=== PATIENT | male | born 1940 | race Hispanic/Latino ===

== ENCOUNTER 2016-05-01 20:12 | Observation (INO) | payer MEDICAID ==
[~2016-05-01] VITALS: Ht 167.6 cm; Wt 61.2 kg
[~2016-05-01 20:12] MED LIST: DOXA1TAB2 PO
--- OUTSIDE RECORDS SUMMARY | 2016-05-01 20:17 | XMS REPORT | Continuity of Care Document ---
Author Author [facility] Organization [facility] Address Unknown Phone Unavailable Care Team Providers Care Maintenance Repairman Name Role Phone DAYSI BEDOYA DO PCP Insurance Providers Payer Name Policy Number Subscriber Name Relationship [facility] [id number] Love Campos 18 Self / Same As Patient Advance Directives Directive Response Recorded Date/Time Advance Directives No 10/13/14 6:05pm Health Care Power of Retail Custodial Associate No 10/13/14 6:05pm Organ Donor UNKNOWN 10/13/14 6:05pm Resuscitation Status Full Code 10/13/14 6:05pm Problems Medical Problems Problem Onset Date Status Alcohol abuse Unknown Active Urinary tract infection Unknown Active Diabetes mellitus Unknown Active Alcoholism Unknown Active Pancreatitis Unknown Active Sepsis Unknown Active Altered mental status Unknown Active Hematemesis Unknown Active Mass of right lobe of liver Unknown Active Cholelithiasis and acute cholecystitis with obstruction Unknown Active Ascending cholangitis Unknown Active Alcohol abuse Unknown Active Scalp laceration Unknown Active Medications Medication Dose Route Sig Days/Qty Instructions Order Date Discontinued Date Status Doxazosin Mesylate 1 Mg PO DAILY 05/03/11 04/15/14 Discontinued Social History Social History Problem Response Recorded Date/Time Alcohol Use Past History 10/13/2014 6:05pm Recreational Drug Use No 10/13/2014 6:05pm Recent Foreign Travel No 10/13/2014 6:02pm Recent Infectious Disease Exposure No 10/13/2014 6:02pm Hospitalization with Isolation Denies 10/13/2014 6:02pm Sexually Transmitted Disease No 10/13/2014 6:05pm Smoking Status Current Everyday Smoker 10/13/2014 6:05pm Query Response Start Date Stop Date Smoking Status Current Everyday Smoker Hospital Discharge Instructions No hospital discharge instructions. Plan of Care No plan of care. Functional Status No functional status results. Allergies, Adverse Reactions, Alerts Allergen Type Severity Reaction Status Last Updated No Known Drug Allergies Active 05/02/11 Immunizations Name Given Type Date of Influenza Vaccine 12/02/10 Historical Tetanus Booster (TDap) Unknown Historical Tdap 10/13/14 Administered Vital Signs Acute Vital Signs Vital Response Date/Time Temperature (Fahrenheit) 97.9 degrees F (97.6 - 99.5) Temperature (Calculated Celsius) 36.90163 degrees C (36.4 - 37.5) Pulse Rate (adult) 98 bpm (60 - 90) Respiratory Rate 18 bpm (12 - 24) O2 Sat by Pulse Oximetry 93 % (88 - 100) Blood Pressure 145/84 mm Hg Blood Pressure Mean 104 mm Hg Pain Pain Intensity 0 Height (Feet) 5 feet Height (Inches) 6.00 inches Height (Calculated Centimeters) 167.201442 cm Weight (Pounds) 151 pounds Weight (Ounces) 9.0 oz Weight (Calculated Grams) 80976.594 gm Weight (Calculated Kilograms) 68.384460 kilograms Calculated BMI 21.09 Results No known relevant diagnostic tests, laboratory data and/or discharge summary. Procedures No known history of procedures. Encounters Encounter Location Date/Time Departed Emergency Room [facility] 10/13/14 5:55pm Recent Diagnosis
[2016-05-01] MEDS ORDERED: LORazepam INJ 2 MG/ML (ATIVAN) VIAL ONE (20:20)
[2016-05-01 20:27] LABS: BASOPHILS # (AUTO) 0.1 10^3/uL (0.0-0.1); BASOPHILS % (AUTO) 1 % (0-10); EOSINOPHILS # (AUTO) 0.6 10^3/uL (0.0-0.3); EOSINOPHILS % (AUTO) 9 % (0-10); LYMPHOCYTES # (AUTO) 2.3 X 10^3 (1.0-4.0); LYMPHOCYTES % (AUTO) 35 % (12-44); MEAN CORPUSCULAR HEMOGLOBIN 33 PG (25-34); MEAN CORPUSCULAR HGB CONC 34 G/DL (32-36); MEAN CORPUSCULAR VOLUME 98 FL (80-99); MEAN PLATELET VOLUME 9.3 FL (7.4-10.4); MONOCYTES # (AUTO) 0.5 X 10^3 (0.0-1.0); MONOCYTES % (AUTO) 8 % (0-12); NEUTROPHILS # (AUTO) 3.1 X 10^3 (1.8-7.8); NEUTROPHILS % (AUTO) 47 % (42-75); PLATELET COUNT 249 10^3/uL (130-400); RED BLOOD COUNT 4.18 10^6/uL (4.35-5.85); RED CELL DISTRIBUTION WIDTH 13.1 % (10.0-14.5); WHITE BLOOD COUNT 6.5 10^3/uL (4.3-11.0)
[2016-05-01] MEDS ORDERED: LORazepam INJ 2 MG/ML (ATIVAN) VIAL IVP ONE (20:30)
[2016-05-01] MEDS ORDERED: NS IV 500 ML 500 ML IV SCH ×2 (20:30→21:00)
--- NOTE | 2016-05-01 20:34 | ED Neurological Problem ---
General Stated Complaint: ETOH INTOXICATION Source: patient Exam Limitations: no limitations History of Present Illness Time seen by provider: 20:32 Initial Comments To ER with complaints of alcohol intoxication. He arrives per EMS after they were summoned by [facility] deputies who found the gentleman acting strangely outside of the taxicab service. Patient is well-known to the emergency room for alcohol intoxication. Timing/Duration: 1 week Severity: mild Associated Symptoms: confusion Allergies and Home Medications Allergies Coded Allergies: No Known Drug Allergies (Unverified , 05/12/15) Home Medications Unable to Obtain Active Prescriptions or Reported Meds Constitutional: see HPI Eyes: No Symptoms Reported Ears, Nose, Mouth, Throat: no symptoms reported Respiratory: no symptoms reported Genitourinary: no symptoms reported Musculoskeletal: no symptoms reported Skin: no symptoms reported Psychiatric/Neurological: No Symptoms Reported Endocrine: No Symptoms Reported Past Sjzeqju-Vcghvs-Kufnuy Hx Immunizations Up To Date Tetanus Booster (TDap): Unknown Date of Pneumonia Vaccine: Dec 02, 2010 Date of Influenza Vaccine: Dec 02, 2010 Surgeries HX Surgeries: No ("Prostate") Respiratory Hx Respiratory Disorders: No Cardiovascular Hx Cardiac Disorders: Yes Neurological Hx Neurological Disorders: No Reproductive System Hx Reproductive Disorders: No Sexually Transmitted Disease: No Genitourinary Hx Genitourinary Disorders: Yes Genitourinary Disorders: UTI-Chronic Gastrointestinal Hx Gastrointestinal Disorders: No Musculoskeletal Hx Musculoskeletal Disorders: Yes (PATIENT HAS FRACTURES L AND R PINKY) Endocrine Hx Endocrine Disorders: No HEENT HX ENT Disorders: Yes Hearing Impairment: Hard of Hearing Cancer Hx Cancer: No Psychosocial Hx Psychiatric Problems: No Integumentary HX Skin/Integumentary Disorder: No Blood Transfusions Hx Blood Disorders: No Family Medical History Significant Family History: No Pertinent Family Hx Family Medial History: Patient reports no known family medical history. Physical Exam Vital Signs Capillary Refill : General Appearance: WD/WN no apparent distress HEENT: PERRL/EOMI normal ENT inspection Neck: non-tender full range of motion Respiratory: no respiratory distress no accessory muscle use Cardiovascular: regular rate, rhythm no murmur Gastrointestinal: normal bowel sounds non tender soft Extremities: normal range of motion Neurologic/Psychiatric: alert other (looking around the room, smiling, grabbing at the female staff members chest, laughing.) Crainal Nerves: normal hearing normal speech Skin: normal color warm/dry Comments Ativan 0.5 mg IV ordered as he is trying to crawl out of bed and grabbing at women's breasts. Progress/Results/Core Measures Results/Orders Lab Results Laboratory Tests Test 05/01/16 20:15 Range/Units Alanine Aminotransferase (ALT/SGPT) 9 0-55 U/L Albumin 4.4 3.2-4.5 G/DL Alkaline Phosphatase 83 40-136 U/L Anion Gap 14 5-14 MMOL/L Aspartate Amino Transf (AST/SGOT) 31 5-34 U/L BUN/Creatinine Ratio 16 Basophils # (Auto) 0.1 0.0-0.1 10^3/uL Basophils (%) (Auto) 1 0-10 % Blood Urea Nitrogen 13 7-18 MG/DL Calcium Level 8.8 8.5-10.1 MG/DL Carbon Dioxide Level 19 L 21-32 MMOL/L Chloride Level 117 H 98-107 MMOL/L Creatinine 0.82 0.60-1.30 MG/DL Eosinophils # (Auto) 0.6 H 0.0-0.3 10^3/uL Eosinophils (%) (Auto) 9 0-10 % Estimat Glomerular Filtration Rate > 60 Glucose Level 98 70-105 MG/DL Hematocrit 41 40-54 % Hemoglobin 13.7 13.3-17.7 G/DL INR Comment 1.1 0.8-1.4 Lymphocytes # (Auto) 2.3 1.0-4.0 X 10^3 Lymphocytes (%) (Auto) 35 12-44 % Mean Corpuscular Hemoglobin 33 25-34 PG Mean Corpuscular Hemoglobin Concent 34 32-36 G/DL Mean Corpuscular Volume 98 80-99 FL Mean Platelet Volume 9.3 7.4-10.4 FL Monocytes # (Auto) 0.5 0.0-1.0 X 10^3 Monocytes (%) (Auto) 8 0-12 % Neutrophils # (Auto) 3.1 1.8-7.8 X 10^3 Neutrophils (%) (Auto) 47 42-75 % Platelet Count 249 130-400 10^3/uL Potassium Level 3.4 L 3.6-5.0 MMOL/L Prothrombin Time 13.5 12.2-14.7 SEC Red Blood Count 4.18 L 4.35-5.85 10^6/uL Red Cell Distribution Width 13.1 10.0-14.5 % Serum Alcohol 431 *H <10 MG/DL Sodium Level 150 H 135-145 MMOL/L Total Bilirubin 0.3 0.1-1.0 MG/DL Total Protein 7.2 6.4-8.2 G/DL White Blood Count 6.5 4.3-11.0 10^3/uL My Orders Orders-CATHI CABALLERO APRN Cbc With Automated Diff (05/01/16 20:16) Protime With Inr (05/01/16 20:16) Comprehensive Metabolic Panel (05/01/16 20:16) Alcohol (05/01/16 20:16) Ua Culture If Indicated (05/01/16 20:16) Drug Screen Stat (Urine) (05/01/16 20:16) Ns Iv 500 Ml (Sodium Chloride 0.9%) (05/01/16 20:30) Lorazepam Injection (Ativan Injection) (05/01/16 20:30) Lorazepam Injection (Ativan Injection) (05/01/16 20:20) Ns Iv 500 Ml (Sodium Chloride 0.9%) (05/01/16 21:00) Medications Given in ED Current Medications Medications Dose Ordered Sig/Brenda Route Start Time Stop Time Status Last Admin Dose Admin Lorazepam 0.5 mg ONCE ONCE IVP 05/01/16 20:30 05/01/16 20:31 DC 05/01/16 20:49 0.5 MG Departure Communication Time/Spoke to Admitting Phy: 22:[address] Ng who graciously accepts the admission for observation Progress Notes 2232-still in bed, alert, singing loudly. However, has urinated all over himself and is unable to stand. He has no close family members here Impression Impression: Primary Impression: Alcohol intoxication Disposition: ADMITTED INPATIENT Condition: Stable Decision to Admit Reason: Admit from ER (General) Decision to Admit/Date: May 01, 2016 Time/Decision to Admit Time: 22:33 Departure-Patient Inst. Decision time for Depature: 21:13 Referrals: DAYSI BEDOYA DO (PCP/Family) Primary Care Physician Scripts Unable to Obtain Active Prescriptions or Reported Meds CATHI CABALLERO APRN May 01, 2016 20:34
[2016-05-01 20:36] LABS: INR 1.1 (0.8-1.4); PROTHROMBIN TIME PATIENT 13.5 SEC (12.2-14.7)
[2016-05-01 20:47] LABS: ALANINE AMINOTRANSFERASE 9 U/L (0-55); ALBUMIN 4.4 G/DL (3.2-4.5); ANION GAP 14 MMOL/L (5-14); ASPARTATE AMINO TRANSFERASE 31 U/L (5-34); BILIRUBIN,TOTAL 0.3 MG/DL (0.1-1.0); BLOOD UREA NITROGEN 13 MG/DL (7-18); BUN/CREATININE RATIO 16; CALCIUM 8.8 MG/DL (8.5-10.1); CARBON DIOXIDE 19 MMOL/L (21-32); CHLORIDE 117 MMOL/L (98-107); CREATININE SERUM 0.82 MG/DL (0.60-1.30); GFR ESTIMATED > 60; GLUCOSE 98 MG/DL (70-105); POTASSIUM 3.4 MMOL/L (3.6-5.0); SODIUM 150 MMOL/L (135-145); TOTAL PROTEIN 7.2 G/DL (6.4-8.2)
[2016-05-01 20:50] LABS: ALCOHOL 431 MG/DL (<10)
[2016-05-01 23:25] VITALS: BP 161/87
[2016-05-02] MEDS ORDERED: LORazepam INJ 2 MG/ML (ATIVAN) VIAL IVP ONE (00:40)
[2016-05-02] MEDS ORDERED: LORazepam INJ 2 MG/ML (ATIVAN) VIAL IVP PRN (00:45)
[2016-05-02] MEDS ORDERED: NS IV 1000 ML 1,000 ML ONE (01:58)
[2016-05-02] MEDS: NS IV 1000 ML 1,000 ML IV SCH ×2 (02:09→13:22)
[2016-05-02 04:20] VITALS: BP 143/77
[2016-05-02 06:05] LABS: ANION GAP 14 MMOL/L (5-14); BLOOD UREA NITROGEN 10 MG/DL (7-18); BUN/CREATININE RATIO 14; CALCIUM 7.6 MG/DL (8.5-10.1); CARBON DIOXIDE 18 MMOL/L (21-32); CHLORIDE 120 MMOL/L (98-107); CREATININE SERUM 0.73 MG/DL (0.60-1.30); GFR ESTIMATED > 60; GLUCOSE 80 MG/DL (70-105); SODIUM 152 MMOL/L (135-145)
[2016-05-02 08:00] VITALS: BP 135/78
[2016-05-02] MEDS ORDERED: CATHETER FLUSH 10 ML SYR IV PRN (09:45)
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
--- NOTE | 2016-05-02 11:59 | Discharge Instructions ---
Discharge [facility] Discharge Medications New, Converted or Re-Newed RX: Other Medication Profile: Unable to Obtain Active Prescriptions or Reported Meds Patient Instructions Goal/Follow Up Appt: You have an appointment at [facility] on SaturdayMay 04 @ 320PM - It is very important that you come to your appointment so that we can help you with you medical concerns You will also need to contact Geoffrey Pa Patient Instructions: - It is very important that you limit alcohol consumption, We have very limited in the help that we can provide you while you are drinking Return to The Hospital For: Chest pain Shortness of breath Confusion Activity & Diet Discharge Diet: No Restrictions Activity as Tolerated: Yes Copy Copies To 1: JACKIE JIMÉNEZ MD, HOLLY R MD May 02, 2016 11:59
[2016-05-02 12:00] VITALS: BP 152/85
[2016-05-02] MEDS ORDERED: KCL 20 MEQ TAB (K-DUR) PO NR (12:00)
[2016-05-02 19:34] VITALS: BP 152/85
== END 2016-05-02 11:56 | disposition home or self-care (01) ==
LOC: EDUNIT# 20:12 → ER 20:13 → UNDOADMOB 22:57 → 4TH 22:57 → UNDODISOB 05-02 19:38
PROVIDERS: ADMIT Family Medicine; ATTEND Family Medicine
DX: F10.229 Alcohol dependence with intoxication, unspecified (principal); R32 Unspecified urinary incontinence; E11.9 Type 2 diabetes mellitus without complications; Z59.0 Homelessness; Z91.19 Patient's noncompliance with other medical treatment and regimen; Y90.8 Blood alcohol level of 240 mg/100 ml or more
CPT/HCPCS: 36415; 80048; 80053; 80320; 85025; 85610; 96374; G0378

== ENCOUNTER 2019-06-06 20:12 | Inpatient (IN) | payer SELFPAY ==
[~2019-06-06] VITALS: Ht 177 cm; Wt 64.0 kg
[~2019-06-06 20:12] MED LIST changes: +LORazepam INJ 2 MG/ML (ATIVAN) VIAL ONE
--- OUTSIDE RECORDS SUMMARY | 2019-06-06 20:17 | XMS REPORT ---
Author Author David, Taco Doctor Organization [facility] Address Unknown Phone Unavailable Care Team Providers Care Appraiser Irrigation Tax Name Role Phone Migration, Doctor Unavailable Unavailable PROBLEMS Type Condition ICD9-CM Code [id number] Code Onset Dates Condition S tatus SNOMED Code Problem Mild intermittent asthma without complication J45. 20 Active 413330320 Problem Essential hypertension I10 Active 03806804 Problem Benign prostatic hyperplasia with lower urinary tract symptoms N40.1 Active 603978865 ALLERGIES No Information ENCOUNTERS Encounter Location Date Diagnosis [facility] [address] [facility] [id number] [address] [place] [phone] Sep, Dysuria R30.0 ; Essential hy pertension I10 ; Mild intermittent asthma without complication J45.20 ; Benign prostatic hyperplasia with lower urinary tract symptoms N40.1 ; Acute cystitis with hematuria N30.01 and UTI (urinary tract infection) N39.0 [facility] [address] [facility] [id number] [address] [place] [phone] Sep, [facility] [address] [facility] [id number] [address] [place] [phone] Sep, [facility] [address] [facility] [id number] [address] [place] [phone] Jun, [facility] [id number] [place] [phone] May, [facility] [address] [facility] [id number] [address] [place] [phone] May, [facility] [address] [id number] [address] [place] [phone] May, [facility] [address] [facility] [id number] [address] [place] [phone] Jun, [facility] [address] [id number] [address] [place] [phone] Jun, [facility] [address] [id number] [address] [place] [phone] May, [facility] [address] [id number] [address] [place] [phone] May, [facility] [address] [id number] [address] [place] [phone] May, [facility] [address] [id number] [address] [place] [phone] May, [facility] [address] [id number] [address] [place] [phone] May, [facility] [address] [id number] [address] [place] [phone] May, [facility] [address] [id number] [address] [place] [phone] July, [facility] [address] [id number] [address] [place] [phone] Mar, IMMUNIZATIONS No Known Immunizations SOCIAL HISTORY Never Assessed REASON FOR VISIT [facility] PLAN OF CARE VITAL SIGNS Height 65 in 2012-07-29 Weight 134 lbs 2012-07-29 Temperature 98.1 degrees Fahrenheit 2012-07-29 Heart Rate 72 bpm 2012-07-29 Respiratory Rate 16 2012-07-29 Blood pressure systolic 138 mmHg 2012-07-29 Blood pressure diastolic 72 mmHg 2012-07-29 MEDICATIONS No Known Medications RESULTS No Results PROCEDURES No Known procedures INSTRUCTIONS MEDICATIONS ADMINISTERED No Known Medications MEDICAL (GENERAL) HISTORY Type Description Date Surgical History gall bladder Hospitalization History ETOH intoxication-H 04/30/16
--- OUTSIDE RECORDS SUMMARY | 2019-06-06 20:17 | XMS REPORT ---
Author Author David, Taco Doctor Organization [facility] Address Unknown Phone Unavailable Care Team Providers Care Heat Treat Supervisor Name Role Phone Migration, Doctor Unavailable Unavailable PROBLEMS Type Condition ICD9-CM Code PRK54-KA Code Onset Dates Condition S tatus SNOMED Code Problem Mild intermittent asthma without complication J45. 20 Active 733909051 Problem Essential hypertension I10 Active 12027973 Problem Benign prostatic hyperplasia with lower urinary tract symptoms N40.1 Active [id number] ALLERGIES No Information ENCOUNTERS Encounter Location Date Diagnosis [facility] [address] [facility] [id number] [address] [place] [phone] Sep, Dysuria R30.0 ; Essential hy pertension I10 ; Mild intermittent asthma without complication J45.20 ; Benign prostatic hyperplasia with lower urinary tract symptoms N40.1 ; Acute cystitis with hematuria N30.01 and UTI (urinary tract infection) N39.0 [facility] [address] [facility] [id number] [address] [place] [phone] Sep, [facility] [address] [facility] [id number] [address] [place] [phone] Sep, [facility] [address] [facility] [id number] [address] [place] [phone] Jun, [facility] [id number] [place] [id number] May, [facility] [address] [facility] [id number] [address] [place] [phone] May, [facility] [address] [id number] [address] [place] [phone] May, [facility] [address] [facility] [id number] [address] [place] [phone] Jun, [facility] [address] [id number] [address] [place] [phone] Jun, [facility] [address] [id number] [address] [place] [phone] May, [facility] [address] [id number] [address] [place] [phone] May, [facility] [address] [id number] [address] [place] [phone] May, [facility] [address] [id number] [address] [place] [phone] May, [facility] [address] [id number] [address] [place] [phone] May, [facility] [address] [id number] [address] [place] [phone] May, [facility] [address] [id number] [address] [place] [phone] July, [facility] [address] [id number] [address] [place] [phone] Mar, IMMUNIZATIONS No Known Immunizations SOCIAL HISTORY Never Assessed REASON FOR [place]ISIT [facility] [place] VITAL SIGNS Height 65 in 2014-05-25 Weight 151 lbs 2014-05-25 Temperature 98.4 degrees Fahrenheit 2014-05-25 Heart Rate 68 bpm 2014-05-25 Respiratory Rate 16 2014-05-25 Blood pressure systolic 168 mmHg 2014-05-25 Blood pressure diastolic 82 mmHg 2014-05-25 MEDICATIONS No Known Medications RESULTS No Results PROCEDURES No Known procedures INSTRUCTIONS MEDICATIONS ADMINISTERED No Known Medications MEDICAL (GENERAL) HISTORY Type Description Date Surgical History gall bladder Hospitalization History ETOH intoxication-H 04/30/16
--- OUTSIDE RECORDS SUMMARY | 2019-06-06 20:17 | XMS REPORT ---
Author Author David, Taco Doctor Organization [facility] Address Unknown Phone Unavailable Care Team Providers Care Radiological Equipment Specialist Name Role Phone Migration, Doctor Unavailable Unavailable PROBLEMS Type Condition ICD9-CM Code MCH62-II Code Onset Dates Condition S tatus SNOMED Code Problem Mild intermittent asthma without complication J45. 20 Active 811392048 Problem Essential hypertension I10 Active 78898427 Problem Benign prostatic hyperplasia with lower urinary tract symptoms N40.1 Active [id number] ALLERGIES No Information ENCOUNTERS Encounter Location Date Diagnosis [facility] [address] [facility] [id number] [address] [place] [phone] Sep, Dysuria R30.0 ; Essential hy pertension I10 ; Mild intermittent asthma without complication J45.20 ; Benign prostatic hyperplasia with lower urinary tract symptoms N40.1 ; Acute cystitis with hematuria N30.01 and UTI (urinary tract infection) N39.0 [facility] [address] [facility] [id number] [address] [place] [phone] Sep, [facility] [address] [facility] [id number] [address] [place] [phone] Sep, [facility] [address] [facility] [id number] [address] [place] [phone] Jun, [facility] [id number] [place] [id number] May, [facility] [address] [facility] [id number] [address] [place] [phone] May, [facility] [address] [id number] [address] [place] [phone] May, [facility] [address] [facility] [id number] [address] [place] [phone] Jun, [facility] [address] [id number] [address] [place] [phone] Jun, [facility] [address] [id number] [address] [place] [phone] May, [facility] [address] [id number] [address] [place] [phone] May, [facility] [address] [id number] [address] [place] [phone] May, [facility] [address] [id number] [address] [place] [phone] May, [facility] [address] [id number] [address] [place] [phone] May, [facility] [address] [id number] [address] [place] [phone] May, [facility] [address] [id number] [address] [place] [phone] July, [facility] [address] [id number] [address] [place] [phone] Mar, IMMUNIZATIONS No Known Immunizations SOCIAL HISTORY Never Assessed REASON FOR VISIT EMR-[facility] PLAN OF CARE VITAL SIGNS MEDICATIONS No Known Medications RESULTS No Results PROCEDURES Procedure Date Ordered Result Body Site COMPREHEN METABOLIC PANEL May 05, 2014 VENIPUNCT, ROUTINE* May 05, 2014 INSTRUCTIONS MEDICATIONS ADMINISTERED No Known Medications MEDICAL (GENERAL) HISTORY Type Description Date Surgical History gall bladder Hospitalization History ETOH intoxication-[facility] 04/30/16
--- OUTSIDE RECORDS SUMMARY | 2019-06-06 20:17 | XMS REPORT ---
Author Author David, Taco Doctor Organization [facility] Address Unknown Phone Unavailable Care Team Providers Care Negative Cleaner Name Role Phone Migration, Doctor Unavailable Unavailable PROBLEMS Type Condition ICD9-CM Code HDA34-JR Code Onset Dates Condition S tatus SNOMED Code Problem Mild intermittent asthma without complication J45. 20 Active 534929081 Problem Essential hypertension I10 Active 03818958 Problem Benign prostatic hyperplasia with lower urinary tract symptoms N40.1 Active 060522683 ALLERGIES No Information ENCOUNTERS Encounter Location Date Diagnosis [facility] [address] [facility] [id number] [address] [place] [phone] Sep, Dysuria R30.0 ; Essential hy pertension I10 ; Mild intermittent asthma without complication J45.20 ; Benign prostatic hyperplasia with lower urinary tract symptoms N40.1 ; Acute cystitis with hematuria N30.01 and UTI (urinary tract infection) N39.0 [facility] [address] [facility] [id number] [address] [place] [phone] Sep, [facility] [address] [facility] [id number] [address] [place] [phone] Sep, [facility] [address] [facility] [id number] [address] [place] [phone] Jun, [facility] [address] [place] [id number] [place] [address] [phone] May, [facility] [address] [facility] [id number] [address] [place] [phone] May, [facility] [address] [id number] [address] [place] [phone] May, [facility] [address] [facility] [id number] [address] [place] [phone] Jun, [facility] [address] [id number] [address] [place] [phone] Jun, [facility] [address] [id number] [address] [place] [phone] May, [facility] [address] [id number] [address] [place] [phone] May, [facility] [address] [id number] [address] [place] [phone] May, [facility] [address] [id number] [address] [place] [phone] May, [facility] [address] [id number] [address] [place] [phone] May, [facility] [address] [id number] [address] [place] [phone] May, [facility] [address] [id number] [address] [place] [phone] July, [facility] [address] [id number] [address] [place] [phone] Mar, IMMUNIZATIONS No Known Immunizations SOCIAL HISTORY Never Assessed REASON FOR VISIT EMR-[facility] PLAN OF CARE VITAL SIGNS Height 65 in 2014-05-05 Weight 149.7 lbs 2014-05-05 Temperature 98 degrees Fahrenheit 2014-05-05 Heart Rate 76 bpm 2014-05-05 Respiratory Rate 16 2014-05-05 Blood pressure systolic 128 mmHg 2014-05-05 Blood pressure diastolic 72 mmHg 2014-05-05 MEDICATIONS No Known Medications RESULTS No Results PROCEDURES No Known procedures INSTRUCTIONS MEDICATIONS ADMINISTERED No Known Medications MEDICAL (GENERAL) HISTORY Type Description Date Surgical History gall bladder Hospitalization History ETOH intoxication-[facility] 04/30/16
--- OUTSIDE RECORDS SUMMARY | 2019-06-06 20:17 | XMS REPORT ---
Author Author David, Taco Doctor Organization [facility] Address Unknown Phone Unavailable Care Team Providers Care Petroleum Refinery Worker Name Role Phone Migration, Doctor Unavailable Unavailable PROBLEMS Type Condition ICD9-CM Code [id number] Code Onset Dates Condition S tatus SNOMED Code Problem Mild intermittent asthma without complication J45. 20 Active 097550711 Problem Essential hypertension I10 Active 20830790 Problem Benign prostatic hyperplasia with lower urinary tract symptoms N40.1 Active [id number] ALLERGIES No Information ENCOUNTERS Encounter Location Date Diagnosis [facility] [address] [facility] [id number] [address] [place] [phone] Sep, Dysuria R30.0 ; Essential hy pertension I10 ; Mild intermittent asthma without complication J45.20 ; Benign prostatic hyperplasia with lower urinary tract symptoms N40.1 ; Acute cystitis with hematuria N30.01 and UTI (urinary tract infection) N39.0 [facility] [address] [facility] [id number] [address] [place] [phone] Sep, [facility] [address] [facility] [id number] [address] [place] [phone] Sep, [facility] [address] [facility] [id number] [address] [place] [phone] Jun, [facility] [address] [place] [id number] [place] [address] [id number] May, [facility] [address] [facility] [id number] [address] [place] [phone] May, [facility] [address] [id number] [address] [place] [phone] May, [facility] [address] [facility] [id number] [address] [place] [phone] Jun, [facility] [address] [id number] [address] [place] [phone] Jun, [facility] [address] [id number] [address] [place] [phone] May, [facility] [address] [id number] [address] [place] [phone] May, [facility] [address] [id number] [address] [place] [phone] May, [facility] [address] [id number] [address] [place] [phone] May, [facility] [address] [id number] [address] [place] [phone] May, [facility] [address] [id number] [address] [place] [phone] May, [facility] [address] [id number] [address] [place] [phone] July, [facility] [address] [id number] [address] [place] [phone] Mar, IMMUNIZATIONS No Known Immunizations SOCIAL HISTORY Never Assessed REASON FOR VISIT [place] [place] CARE VITAL SIGNS MEDICATIONS No Known Medications RESULTS No Results PROCEDURES Procedure Date Ordered Result Body Site PROS CANCER SCR; NEW PT DIGTL RECTAL EXAM May 14, 2014 URINALYSIS, AUTO, W/O SCOPE May 14, 2014 INSTRUCTIONS MEDICATIONS ADMINISTERED No Known Medications MEDICAL (GENERAL) HISTORY Type Description Date Surgical History gall bladder Hospitalization History ETOH intoxication-[facility] 04/30/16
--- OUTSIDE RECORDS SUMMARY | 2019-06-06 20:18 | XMS REPORT ---
Author Author Taco Rawls Organization [facility] Address [address] [place] [address] Care Team Providers Care Upholstery Sewer Name Role Phone [email or web address] MANOHAR Unavailable PROBLEMS Type Condition ICD9-CM Code RJS05-JG Code Onset Dates Condition S tatus SNOMED Code Problem Essential hypertension I10 Active 08964299 Problem Mild intermittent asthma without complication J45. 20 Active 945645197 Problem Benign prostatic hyperplasia with lower urinary tract symptoms N40.1 Active 107330052 ALLERGIES No Known Allergies ENCOUNTERS Encounter Location Date Diagnosis [facility] [address] [place] [id number] [address] [place] [phone] Sep, [facility] [address] [place] [id number] [address] [place] [phone] Sep, Dysuria R30.0 ; Essential hy pertension I10 ; Mild intermittent asthma without complication J45.20 ; Benign prostatic hyperplasia with lower urinary tract symptoms N40.1 ; Acute cystitis with hematuria N30.01 and UTI (urinary tract infection) N39.0 [facility] [address] [place] [id number] [address] [place] [phone] Sep, [facility] [address] [place] [id number] [address] [place] [phone] Jun, [facility] [address] [place] [id number] [place] [address] [phone] May, [facility] [address] [place] [id number] [address] [place] [phone] May, [facility] [address] [place] [id number] [address] [place] [phone] May, [facility] [address] [place] [id number] [address] [place] [phone] Jun, [facility] [address] [id number] [address] [place] [phone] Jun, [facility] [address] [id number] [address] [place] [phone] May, [facility] [address] [id number] [address] [place] [phone] May, [facility] [address] [id number] [address] [place] [phone] May, [facility] [address] [id number] [address] [place] [phone] May, [facility] [address] [id number] [address] [place] [phone] May, [facility] [address] [id number] [address] [place] [phone] May, [facility] [address] [id number] [address] [place] [phone] July, [facility] [address] [id number] [address] [place] [phone] Mar, IMMUNIZATIONS No Known Immunizations SOCIAL HISTORY Never Assessed REASON FOR VISIT Painful Urination. Pt has had this problem x 5 years. Has been to [facility] multi ple times and seen multiple doctors for this problem. Pt use to take Flomax fro m another provider here in 2014 but then it was just stopped. KEYLA Peck PLAN OF CARE Activity Details Follow Up 2 Weeks Reason:uti VITAL SIGNS Height 65 in 2016-09-14 Weight 141 lbs 2016-09-14 Temperature 98.9 degrees Fahrenheit 2016-09-14 Heart Rate 88 bpm 2016-09-14 Respiratory Rate 18 2016-09-14 BMI 23.46 kg/m2 2016-09-14 Blood pressure systolic 150 mmHg 2016-09-14 Blood pressure diastolic 90 mmHg 2016-09-14 MEDICATIONS Medication Instructions Dosage Frequency Start Date End Date Duration S roxana Lisinopril-Hydrochlorothiazide 10-12.5 mg take 2 tablet by Oral route 1 time per day already has May, Active Albuterol Sulfate HFA 108 (90 Base) MCG/ACT Inhalation every 4 hrs 2 puffs as needed 4h Sep, Active Lisinopril-Hydrochlorothiazide 20-12.5 MG Orally Once a day 1 table t 24h Sep, 30 day(s) Active Flomax 0.4 MG Orally Once a day 1 capsule 24h Sep, 13 Au g2016 30 day(s) Active Cipro 500 mg Orally Twice a day 1 tablet 12h Sep, 24 Ju l2016 10 day(s) Active RESULTS Name Result Date Reference Range UA LONG DIP (IN HOUSE) 2016-09-14 Lot # Exp date Clarity turbid Color yellow Odor no GLU NEG VIKKI NEG KET NEG SG 1.020 BLO TRACE-LYSED pH 5.5 Protein 1+ URO 0.2 NIT POS ROSA 3+ Lot # Exp date CBC 2016-09-14 WBC 5.9 3.4-10.8 RBC 4.41 4.14-5.80 Hemoglobin 13.8 12.6-17.7 Hematocrit 41.0 37.5-51.0 MCV 93 79-97 MCH 31.3 26.6-33.0 MCHC 33.7 31.5-35.7 RDW 12.5 12.3-15.4 Platelets 220 150-379 Neutrophils 52 Lymphs 20 Monocytes 12 Eos 15 Basos 1 Neutrophils (Absolute) 3.1 1.4-7.0 Lymphs (Absolute) 1.2 0.7-3.1 Monocytes(Absolute) 0.7 0.1-0.9 Eos (Absolute) 0.9 0.0-0.4 Baso (Absolute) 0.0 0.0-0.2 Immature Granulocytes 0 Immature Grans (Abs) 0.0 0.0-0.1 CULTURE, URINE 2016-09-14 Urine Culture, Routine Final report Result 1 No growth PSA 2016-09-14 Prostate Specific Ag, Serum 47.7 0.0- 4.0 CMP 2016-09-14 Glucose, Serum 111 65-99 BUN 17 8-27 Creatinine, Serum 1.00 0.76-1.27 eGFR If NonAfricn Am 73 >59 eGFR If Africn Am 84 >59 BUN/Creatinine Ratio 17 10-24 Sodium, Serum 143 134-144 Potassium, Serum 3.8 3.5-5.2 Chloride, Serum 107 96-106 Carbon Dioxide, Total 18 18-29 Calcium, Serum 8.8 8.6-10.2 Protein, Total, Serum 7.2 6.0-8.5 Albumin, Serum 4.4 3.5-4.8 Globulin, Total 2.8 1.5-4.5 A/G Ratio 1.6 1.2-2.2 Bilirubin, Total 0.3 0.0-1.2 Alkaline Phosphatase, S 95 39-117 AST (SGOT) 25 0-40 ALT (SGPT) 10 0-44 PROCEDURES Procedure Date Ordered Result Body Site URINALYSIS, AUTO, W/O SCOPE September 14, 2016 LAB NOT BILLED BY [facility] September 14, 2016 VENIPUNCT, ROUTINE* September 14, 2016 INSTRUCTIONS MEDICATIONS ADMINISTERED No Known Medications MEDICAL (GENERAL) HISTORY Type Description Date Surgical History gall bladder Hospitalization History ETOH intoxication-[facility] 04/30/16
--- OUTSIDE RECORDS SUMMARY | 2019-06-06 20:18 | XMS REPORT ---
Author Author David, Taco Doctor Organization [facility] Address Unknown Phone Unavailable Care Team Providers Care Auto Wheel Alignment Specialist Name Role Phone Migration, Doctor Unavailable Unavailable PROBLEMS Type Condition ICD9-CM Code [id number] Code Onset Dates Condition S tatus SNOMED Code Problem Mild intermittent asthma without complication J45. 20 Active 253514667 Problem Essential hypertension I10 Active 45317652 Problem Benign prostatic hyperplasia with lower urinary tract symptoms N40.1 Active 892457775 ALLERGIES No Information ENCOUNTERS Encounter Location Date Diagnosis [facility] [address] [facility] [id number] [address] [place] [phone] Sep, Dysuria R30.0 ; Essential hy pertension I10 ; Mild intermittent asthma without complication J45.20 ; Benign prostatic hyperplasia with lower urinary tract symptoms N40.1 ; Acute cystitis with hematuria N30.01 and UTI (urinary tract infection) N39.0 [facility] [address] [facility] [id number] [address] [place] [phone] Sep, [facility] [address] [facility] [id number] [address] [place] [phone] Sep, [facility] [address] [facility] [id number] [address] [place] [phone] Jun, [facility] [address] [place] [id number] [place] [address] [id number] May, [facility] [address] [facility] [id number] [address] [place] [phone] May, [facility] [address] [id number] [address] [place] [phone] May, [facility] [address] [facility] [id number] [address] [place] [phone] Jun, [facility] [address] [id number] [address] [place] [phone] Jun, [facility] [address] [id number] [address] [place] [phone] May, [facility] [address] [id number] [address] [place] [phone] May, [facility] [address] [id number] [address] [place] [phone] May, [facility] [address] [id number] [address] [place] [phone] May, [facility] [address] [id number] [address] [place] [phone] May, [facility] [address] [id number] [address] [place] [phone] May, [facility] [address] [id number] [address] [place] [phone] July, [facility] [address] [id number] [address] [place] [phone] Mar, IMMUNIZATIONS No Known Immunizations SOCIAL HISTORY Never Assessed REASON FOR VISIT EMR-[facility] PLAN OF CARE VITAL SIGNS MEDICATIONS No Known Medications RESULTS No Results PROCEDURES Procedure Date Ordered Result Body Site COMPREHEN METABOLIC PANEL May 25, 2014 VENIPUNCT, ROUTINE* May 25, 2014 INSTRUCTIONS MEDICATIONS ADMINISTERED No Known Medications MEDICAL (GENERAL) HISTORY Type Description Date Surgical History gall bladder Hospitalization History ETOH intoxication-[facility] 04/30/16
--- OUTSIDE RECORDS SUMMARY | 2019-06-06 20:18 | XMS REPORT ---
Author Author David, Taco Doctor Organization [facility] Address Unknown Phone Unavailable Care Team Providers Care Nremt Name Role Phone Migration, Doctor Unavailable Unavailable PROBLEMS Type Condition ICD9-CM Code [id number] Code Onset Dates Condition S tatus SNOMED Code Problem Mild intermittent asthma without complication J45. 20 Active 591551975 Problem Essential hypertension I10 Active 91325770 Problem Benign prostatic hyperplasia with lower urinary tract symptoms N40.1 Active [id number] ALLERGIES No Information ENCOUNTERS Encounter Location Date Diagnosis [facility] [address] [facility] [id number] [address] [place] [phone] Sep, [facility] [address] [facility] [id number] [address] [place] [phone] Sep, Dysuria R30.0 ; Essential hy pertension I10 ; Mild intermittent asthma without complication J45.20 ; Benign prostatic hyperplasia with lower urinary tract symptoms N40.1 ; Acute cystitis with hematuria N30.01 and UTI (urinary tract infection) N39.0 [facility] [address] [facility] [id number] [address] [place] [phone] Sep, [facility] [address] [facility] [id number] [address] [place] [phone] Jun, [facility] [address] [place] [id number] [place] [id number] May, [facility] [address] [facility] [id number] [address] [place] [phone] May, [facility] [address] [facility] [id number] [address] [place] [phone] May, [facility] [address] [facility] [id number] [address] [place] [phone] Jun, [facility] [address] [facility] [id number] [address] [place] [phone] Jun, [facility] [address] [id number] [address] [place] [phone] May, [facility] [address] [id number] [address] [place] [phone] May, [facility] [address] [id number] [address] [place] [phone] May, [facility] [address] [id number] [address] [place] [phone] May, [facility] [address] [id number] [address] [place] [phone] May, [facility] [address] [id number] [address] [place] [phone] May, [facility] [address] [id number] [address] [place] [phone] July, [facility] [address] [id number] [address] [place] [phone] Mar, IMMUNIZATIONS No Known Immunizations SOCIAL HISTORY Never Assessed REASON FOR VISIT [place] [place] VITAL SIGNS MEDICATIONS Medication Instructions Dosage Frequency Start Date End Date Duration S roxana Lisinopril-Hydrochlorothiazide 10-12.5 mg take 2 tablet by Oral route 1 time per day already has May, Active RESULTS No Results PROCEDURES No Known procedures INSTRUCTIONS MEDICATIONS ADMINISTERED No Known Medications MEDICAL (GENERAL) HISTORY Type Description Date Surgical History gall bladder Hospitalization History ETOH intoxication-[facility] 04/30/16
--- OUTSIDE RECORDS SUMMARY | 2019-06-06 20:18 | XMS REPORT ---
Author Author David, Taco Doctor Organization [facility] Address Unknown Phone Unavailable Care Team Providers Care Central Sterile Supply Technician Name Role Phone Migration, Doctor Unavailable Unavailable PROBLEMS Type Condition ICD9-CM Code ERT87-MZ Code Onset Dates Condition S tatus SNOMED Code Problem Mild intermittent asthma without complication J45. 20 Active 239785107 Problem Essential hypertension I10 Active 39809080 Problem Benign prostatic hyperplasia with lower urinary tract symptoms N40.1 Active [id number] ALLERGIES No Information ENCOUNTERS Encounter Location Date Diagnosis [facility] [address] [facility] [id number] [address] [place] [phone] Sep, [facility] [address] [facility] [id number] [address] [place] [phone] Sep, Dysuria R30.0 ; Essential hy pertension I10 ; Mild intermittent asthma without complication J45.20 ; Benign prostatic hyperplasia with lower urinary tract symptoms N40.1 ; Acute cystitis with hematuria N30.01 and UTI (urinary tract infection) N39.0 [facility] [address] [facility] [id number] [address] [place] [phone] Sep, [facility] [address] [facility] [id number] [address] [place] [phone] Jun, [facility] [id number] [place] [phone] May, [facility] [address] [facility] [id number] [address] [place] [phone] May, [facility] [address] [facility] [id number] [address] [place] [phone] May, [facility] [address] [facility] [id number] [address] [place] [phone] Jun, [facility] [address] [facility] [id number] [address] [place] [phone] Jun, [facility] [address] [id number] [address] [place] [phone] May, [facility] [address] [id number] [address] [place] [phone] May, [facility] [address] [id number] [address] [place] [phone] May, [facility] [address] [id number] [address] [place] [phone] May, [facility] [address] [id number] [address] [place] [phone] May, [facility] [address] [id number] [address] [place] [phone] May, [facility] [address] [id number] [address] [place] [phone] July, [facility] [address] [id number] [address] [place] [phone] Mar, IMMUNIZATIONS No Known Immunizations SOCIAL HISTORY Never Assessed [place]ASON [place] [place] VITAL SIGNS MEDICATIONS Unknown Medications RESULTS No Results PROCEDURES No Known procedures INSTRUCTIONS MEDICATIONS ADMINISTERED No Known Medications MEDICAL (GENERAL) HISTORY Type Description Date Surgical History gall bladder Hospitalization History ETOH intoxication-[facility] 04/30/16
--- OUTSIDE RECORDS SUMMARY | 2019-06-06 20:18 | XMS REPORT ---
Author Author Taco JIMÉNEZ Organization [facility] Address [address] [place] [address] Care Team Providers Care Mine Engineering Manager Name Role Phone JACKIE JIMÉNEZ Unavailable PROBLEMS Type Condition ICD9-CM Code RBU97-IU Code Onset Dates Condition S tatus SNOMED Code Problem Essential hypertension I10 Active 98520476 Problem Mild intermittent asthma without complication J45. 20 Active 113787694 Problem Benign prostatic hyperplasia with lower urinary tract symptoms N40.1 Active 919795073 ALLERGIES No Information SOCIAL HISTORY Never Assessed PLAN OF CARE VITAL SIGNS MEDICATIONS Unknown Medications RESULTS No Results PROCEDURES No Known procedures IMMUNIZATIONS No Known Immunizations MEDICAL (GENERAL) HISTORY Type Description Date Surgical History gall bladder Hospitalization History ETOH intoxication-[facility] 04/30/16
--- OUTSIDE RECORDS SUMMARY | 2019-06-06 20:18 | XMS REPORT | Continuity of Care Document ---
Author Organization Unknown Address Unknown Phone Unavailable Allergies Active Description Code Type Severity Reaction Onset Reported/Identified Relationship to Patient Clinical Status Yes No Known Drug Allergies [id number] Drug Allergy Unknown N/A 05/12/2015 Medications There is no data. Problems Date Dx Coded Attending Type Code Diagnosis Diagnosed By 04/29/2008 V70.0 GENE RAL MEDICAL EXAM, ROUTINE, AT HEALTH CARE FACILITY 04/29/2008 GALE HARRINGTON APRN V70 .0 GENERAL MEDICAL EXAM, ROUTINE, AT HEALTH CARE FACILITY 03/08/2010 600.01 BPH W/O OBSTRUCTUION 03/08/2010 GALE HARRINGTON APRN 600 .01 BPH W/O OBSTRUCTUION 05/04/2011 Ot 275.2 05/04/2011 Ot 276.0 05/04/2011 Ot 276.8 05/04/2011 Ot 305.01 05/04/2011 Ot 600.00 05/04/2011 Ot 790.29 05/04/2011 Ot 790.6 05/04/2011 Ot 991.6 05/04/2011 Ot E000.8 05/04/2011 Ot E849.4 05/04/2011 Ot E901.0 05/04/2011 Ot V06.1 01/03/2014 CATHI CABALLERO APRN Ot 305.00 04/16/2014 QUIN HARPER, TERI Busch Ot 038.9 04/16/2014 QUIN HARPER, TERI Busch Ot 574.00 04/16/2014 QUIN HARPER, TERI Busch Ot 599.0 04/16/2014 QUIN HARPER, TERI Busch Ot 995.91 04/16/2014 QUIN HARPER, TERI Busch Ot 038.9 04/16/2014 QUIN HARPER, TERI Busch Ot 250.00 04/16/2014 QUIN HARPER, TERI Busch Ot 562.10 04/16/2014 QUIN HARPER, TERI Busch Ot 573.9 04/16/2014 QUIN HARPER, TERI Busch Ot 574.00 04/16/2014 QUIN HARPER, TERI S Ot 574.01 04/16/2014 QUIN HARPER, TERI S Ot 577.0 04/16/2014 QUIN HARPER, TERI S Ot 599.0 04/16/2014 QUIN HARPER, TERI S Ot 790.93 04/16/2014 QUIN HARPER, TERI Busch Ot 995.91 04/16/2014 QUIN HARPER, TERI S Ot 038.9 04/16/2014 QUIN HARPER, TERI S Ot 574.00 04/16/2014 QUIN HARPER, TERI S Ot 599.0 04/16/2014 QUIN HARPER, TERI Busch Ot 995.91 04/19/2014 QUIN HARPER, TERI Busch Ot 038.9 04/19/2014 QUIN HARPER, TERI Busch Ot 574.00 04/19/2014 QUIN HARPER, TERI S Ot 599.0 04/19/2014 QUIN HARPER, TERI Busch Ot 995.91 04/19/2014 QUIN HARPER, TERI S Ot 038.9 04/19/2014 QUIN HARPER, TERI S Ot 574.00 04/19/2014 QUIN HARPER, TERI S Ot 599.0 04/19/2014 QUIN HARPER, TERI Busch Ot 995.91 04/19/2014 QUIN HARPER, TERI Busch Ot 038.9 04/19/2014 QUIN HARPER, TERI S Ot 574.00 04/19/2014 QUIN HARPER, TERI S Ot 599.0 04/19/2014 QUIN HARPER, TERI Busch Ot 995.91 05/05/2014 JUANY CARTER, GALE L 401 .1 HYPERTENSION, BENIGN ESSENTIAL 05/05/2014 MADАнна DRAFTER AUTOMOTIVE DESIGN LAYOUT, GALE L 788 .1 DYSURIA 05/05/2014 MADL DRAFTER AUTOMOTIVE DESIGN LAYOUT, GALE L 788 .20 RETENTION OF URINE UNSPECIFIED 05/05/2014 MADАнна CARTER, GALE L 790 .93 ELEVATED PROSTATE SPECIFIC ANTIGEN [PSA] 05/14/2014 JUANY CARTER, GALE L 276 .51 DEHYDRATION 08/16/2014 ASHLYN HARPER, ABDIRIZAK Maxwell Ot 185 10/13/2014 CATHI CABALLERO APRN Ot 305.00 10/13/2014 CATHI CABALLERO DRAFTER AUTOMOTIVE DESIGN LAYOUT Ot 873 .0 10/13/2014 CATHI CABALLERO DRAFTER AUTOMOTIVE DESIGN LAYOUT Ot E000.8 10/13/2014 CATHI CABALLERO DRAFTER AUTOMOTIVE DESIGN LAYOUT Ot E849.4 10/13/2014 CATHI CABALLERO DRAFTER AUTOMOTIVE DESIGN LAYOUT Ot V06 .1 10/13/2014 ASHLYN HARPER, ABDIRIZAK A Ot 185 05/12/2015 JESICA LUCAS DO, Ot F10.10 ALCOHOL ABUSE, UNCOMPLICATED 05/12/2015 JESICA LUCAS DO Ot K57.90 DVRTCLOS OF INTEST, PART UNSP, W/O PERF 05/12/2015 JESICA LUCAS DO Ot 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, MID-CE 05/12/2015 JESICA LUCAS DO Ot N13.30 UNSPECIFIED HYDRONEPHROSIS 05/12/2015 JESICA LUCAS DO Ot N32.9 BLADDER DISORDER, UNSPECIFIED 05/12/2015 JESICA LUCAS DO Ot S02.2XXA FRACTURE OF NASAL BONES, INIT ENCNTR FOR 05/12/2015 JESICA LUCAS DO Ot V18.0XXA PEDL CYC CLOTH BOLT BANDER INJURED IN NONCLSN TRNSP 05/12/2015 JESICA LUCAS DO Ot Y90.8 BLOOD ALCOHOL LEVEL OF 240 MG/100 ML OR 05/12/2015 JESICA LUCAS DO Ot Y99.8 OTHER EXTERNAL CAUSE STATUS 05/12/2015 JESICA LUCAS DO Ot Z2 3 ENCOUNTER FOR IMMUNIZATION 2015 JESICA LUCAS DO, Ot F10.10 2015 JESICA LUCAS DO Ot K57.90 2015 JESICA LUACS DO Ot M50.32 2015 JESICA LUCAS DO Ot N13.30 2015 JESICA LUCAS DO Ot N32.9 2015 JESICA LUCAS DO Ot S02.2XXA 2015 JESICA LUCAS DO Ot V18.0XXA 2015 JESICA LUCAS DO Ot Y90.8 2015 JESICA LUCAS DO Ot Y99.8 2015 JESICA LUCAS DO Ot Z2 3 06/08/2015 JESICA LUCAS DO Ot F10.10 06/08/2015 JESICA LUCAS DO Ot K57.90 06/08/2015 SHAYYJESICA REYEZ DO Ot M50.32 06/08/2015 JESICA LUCAS DO Ot N13.30 06/08/2015 SHAYYJESICA REYEZ DO Ot N32.9 06/08/2015 SHAYYJESICA REYEZ DO Ot S02.2XXA 06/08/2015 SHAYYJESICA REYEZ DO Ot V18.0XXA 06/08/2015 JESICA LUCAS DO Ot Y90.8 06/08/2015 JESICA LUCAS DO Ot Y99.8 06/08/2015 JESICA LUCAS DO Ot Z2 3 05/02/2016 JACKIE JIMÉNEZ MD, Ot E11.9 TYPE 2 DIABETES MELLITUS WITHOUT COMPLIC 05/02/2016 JACKIE JIMÉNEZ MD, Ot F10.2 29 ALCOHOL DEPENDENCE WITH INTOXICATION, UN 05/02/2016 JACKIE JIMÉNEZ MD, Ot R32 UNSPECIFIED URINARY INCONTINENCE 05/02/2016 JACKIE JIMÉNEZ MD, Ot Y90.8 BLOOD ALCOHOL LEVEL OF 240 MG/100 ML OR 05/02/2016 JACKIE JIMÉNEZ MD, Ot Z59.0 HOMELESSNESS 05/02/2016 JACKIE JIMÉNEZ MD, Ot Z91.1 [address]PLI[address] [facility] Procedures Code Description [place] [address] ROUT [facility] VENIPUNCTURE 05/25/2014 0511175 GF R CALC (RESULT ONLY) 05/25/2014 42869 CMP 05/25/2014 Results Test Result Range Complete blood count (CBC) with automate d white blood cell (WBC) differential - 05/01/16 20:15 Blood leukocytes automated count (number/volume) 6.5 10*3/uL 4.3-11.0 Blood erythrocytes automated count (number/volume) 4.18 10*6/uL 4.35-5.85 Venous blood hemoglobin measurement (mass/volume) 13.7 g/dL 13.3-17.7 Blood hematocrit (volume fraction) 41 % 40-54 Automated erythrocyte mean corpuscular volume 98 [ foz_us] 80-99 Automated erythrocyte mean corpuscular h emoglobin (mass per erythrocyte) 33 pg 25-34 Automated erythrocyte mean corpuscular h emoglobin concentration measurement (mass/volume) 34 g/dL 32-36 Automated erythrocyte distribution width ratio 13. 1 % 10.0- 14.5 Automated blood platelet count (count/volume) 249 10*3/uL 130-400 Automated blood platelet mean volume measurement 9.3 [foz_us] 7.4-10.4 Automated blood neutrophils/100 leukocytes 47 % 42-75 Automated blood lymphocytes/100 leukocytes 35 % 12-44 Blood monocytes/100 leukocytes 8 % 0-12 Automated blood eosinophils/100 leukocytes 9 % 0-10 Automated blood basophils/100 leukocytes 1 % 0-10 Blood neutrophils automated count (number/volume) 3.1 10*3 1.8-7.8 Blood lymphocytes automated count (number/volume) 2.3 10*3 1.0-4.0 Blood monocytes automated count (number/volume) 0. 5 10*3 0.0-1.0 Automated eosinophil count 0.6 10*3/uL 0 .0-0.3 Automated blood basophil count (count/volume) 0.1 10*3/uL 0.0-0.1 PT panel in platelet poor plasma by coag ulation assay - 05/01/16 20:15 Prothrombin time (PT) in platelet poor plasma by coagu lation assay 13.5 s 12.2-14.7 INR in platelet poor plasma or blood by coagulation as say 1.1 0.8-1.4 Comprehensive metabolic panel - 05/01/16 20:15 Serum or plasma sodium measurement (moles/volume) 150 mmol/L 135-145 Serum or plasma potassium measurement (moles/volume) 3.4 mmol/L 3.6-5.0 Serum or plasma chloride measurement (moles/volume) 117 mmol/L 98-107 Carbon dioxide 19 mmol/L 21-32 Serum or plasma anion gap determination (moles/volume) 14 mmol/L 5-14 Serum or plasma urea nitrogen measurement (mass/volume ) 13 mg/dL 7-18 Serum or plasma creatinine measurement (mass/volume) 0.82 mg/dL 0.60-1.30 Serum or plasma urea nitrogen/creatinine mass ratio 16 NRG Serum or plasma creatinine measurement w ith calculation of estimated glomerular filtration rate > NRG Serum or plasma glucose measurement (mass/volume) 98 mg/dL 70-105 Serum or plasma calcium measurement (mass/volume) 8.8 mg/dL 8.5-10.1 Serum or plasma total bilirubin measurement (mass/volu me) 0.3 mg/dL 0.1-1.0 Serum or plasma alkaline phosphatase allison surement (enzymatic activity/volume) 83 U/L 40-136 Serum or plasma aspartate aminotransfera se measurement (enzymatic activity/volume) 31 U/L 5-34 Serum or plasma alanine aminotransferase measurement (enzymatic activity/volume) 9 U/L 0-55 Serum or plasma protein measurement (mass/volume) 7.2 g/dL 6.4-8.2 Serum or plasma albumin measurement (mass/volume) 4.4 g/dL 3.2-4.5 Serum or plasma ethanol measurement (mas s/volume) - 05/01/16 20:15 Serum or plasma ethanol measurement (mass/volume) 431 mg/dL <10 Whole blood basic metabolic panel - 03/20 05:10 Serum or plasma sodium measurement (moles/volume) 152 mmol/L 135-145 Serum or plasma potassium measurement (moles/volume) 3.0 mmol/L 3.6-5.0 Serum or plasma chloride measurement (moles/volume) 120 mmol/L 98-107 Carbon dioxide 18 mmol/L 21-32 Serum or plasma anion gap determination (moles/volume) 14 mmol/L 5-14 Serum or plasma urea nitrogen measurement (mass/volume ) 10 mg/dL 7-18 Serum or plasma creatinine measurement (mass/volume) 0.73 mg/dL 0.60-1.30 Serum or plasma urea nitrogen/creatinine mass ratio 14 NRG Serum or plasma creatinine measurement w ith calculation of estimated glomerular filtration rate > NRG Serum or plasma glucose measurement (mass/volume) 80 mg/dL 70-105 Serum or plasma calcium measurement (mass/volume) 7.6 mg/dL 8.5-10.1 Encounters ACCT No. Visit Date/Time Discharge Status Pt. Type Provider Facility Loc./Unit Complaint [id number] 05/25/2014 14:41:00 05/25/2014 23:59: 59 CLS Outpatient GALE HARRINGTON APRN [id number] 07/29/2012 09:35:00 Document Registration [id number] 09/20/2016 15:25:00 017 23:59:59 CLS Preadmit ASHLYN HARPER, ABDIRIZAK [facility] [place]OST[place] [id number] 05/01/2016 22:57:00 017 19:38:00 DIS Inpatient JESSY HARPER, JACKIE Black [facility] 4TH ETOH INTOXICATION [id number] 05/12/2015 04:47:00 016 07:27:00 DIS Emergency JESICA LUCAS DO [facility] ER [id number] 10/13/2014 17:55:00 015 19:23:00 DIS Emergency CATHI CABALLERO APRN [facility] ER [id number] 07/30/2014 15:09:00 015 23:59:59 CLS Preadmit TIERA TUTTLE [facility] ONC [id number] 07/02/2014 11:54:00 015 23:59:59 CLS Outpatient ASHLYN HARPER, ABDIRIZAK Maxwell [facility] CARD [id number] 04/15/2014 11:00:00 015 16:00:00 DIS Inpatient QUIN HARPER, TERI Busch [facility] ICU [id number] 01/03/2014 19:29:00 014 20:21:00 DIS Emergency CATHI CABALLERO APRN [facility] ER [id number] 05/02/2011 12:09:00 Document Registration
[2019-06-06] MEDS ORDERED: LORazepam INJ 2 MG/ML (ATIVAN) VIAL IVP ONE (20:30)
[2019-06-06] MEDS ORDERED: PANTOPRAZOLE 40 MG (PROTONIX) VIAL IV ONE (20:30)
[2019-06-06] MEDS ORDERED: NS IV 1000 ML 1,000 ML IV SCH ×2 (20:30→23:15)
--- NOTE | 2019-06-06 20:56 | ED General ---
General Chief Complaint: Substance Abuse Stated Complaint: INTOXICATED Source of Information: Patient Exam Limitations: No Limitations History of Present Illness Date Seen by Provider: Jun 06, 2019 Time Seen by Provider: 20:53 Initial Comments To ER by [facility] with reports of altered mental status. He was found laying down in the [place] by a passerby and 911 was summoned. He is non-Bengali speaking known to this ER from previous encounters for intoxication. EMS reports that he's been rather belligerent and vomiting during transport here. Timing/Duration: 1-2 Days Severity: Moderate Allergies and Home Medications Allergies Coded Allergies: No Known Drug Allergies (Unverified , 05/12/15) Home Medications Unable to Obtain Active Prescriptions or Reported Meds Patient Home Medication List Home Medication List Reviewed: Yes Review of Systems Review of Systems Constitutional: see HPI, other (unable to obtain) Past Gttthrd-Gcxyuh-Dhqrau Hx Immunizations Up To Date Tetanus Booster (TDap): Unknown Date of Pneumonia Vaccine: Dec 02, 2010 Date of Influenza Vaccine: Feb 20, 2017 Seasonal Allergies Seasonal Allergies: No Past Medical History Reproductive Disorders: No Sexually Transmitted Disease: No UTI-Chronic Hearing Impairment: Hard of Hearing Family Medical History Patient reports no known family medical history. No Pertinent Family Hx Physical Exam Vital Signs Vital Signs - First Documented 06/06/19 20:12 Temp 34.5 Pulse 101 Resp 18 B/P (MAP) 136/88 (104) Pulse Ox 91 O2 Delivery Room Air Capillary Refill : Height, Weight, BMI Height: 5'6.00" Weight: 135lbs. 0.0oz. 61.605885dt; 24.2 BMI Method:Estimated General Appearance: No Apparent Distress, WD/WN, Other (alert, looking around the room, grabbing at staff members, refuses most care, belligerent. No obvious sign of trauma though his hands are cold to the touch.) Eyes: Bilateral Eye Normal Inspection, Bilateral Eye PERRL Neck: Full Range of Motion, Normal Inspection Respiratory: No Accessory Muscle Use, No Respiratory Distress, Rhonci (gurgling with respirations/rhonchi, does not follow commands when his cough to attempt to clear these. Alternating combative/belligerent and very somnolent) Gastrointestinal: Normal Bowel Sounds, Non Tender, Soft, Other (dark emesis noted) Extremity: Normal Inspection, Slow Capillary Refill Skin: Cool Progress/Results/Core Measures Suspected Sepsis SIRS Temperature: Pulse: Respiratory Rate: Laboratory Tests 06/06/19 20:52: White Blood Count 13.1H Blood Pressure / Mean: Laboratory Tests 06/06/19 20:52: Creatinine 0.81, INR Comment 0.9, Platelet Count 221, Total Bilirubin 0.3 Results/Orders Lab Results Laboratory Tests Test 06/06/19 20:52 Range/Units White Blood Count 13.1 H 4.3-11.0 10^3/uL Red Blood Count 4.97 4.35-5.85 10^6/uL Hemoglobin 15.2 13.3-17.7 G/DL Hematocrit 46 40-54 % Mean Corpuscular Volume 93 80-99 FL Mean Corpuscular Hemoglobin 31 25-34 PG Mean Corpuscular Hemoglobin Concent 33 32-36 G/DL Red Cell Distribution Width 13.3 10.0-14.5 % Platelet Count 221 130-400 10^3/uL Mean Platelet Volume 9.7 7.4-10.4 FL Neutrophils (%) (Auto) 90 H 42-75 % Lymphocytes (%) (Auto) 5 L 12-44 % Monocytes (%) (Auto) 3 0-12 % Eosinophils (%) (Auto) 2 0-10 % Basophils (%) (Auto) 0 0-10 % Neutrophils # (Auto) 11.8 H 1.8-7.8 X 10^3 Lymphocytes # (Auto) 0.7 L 1.0-4.0 X 10^3 Monocytes # (Auto) 0.3 0.0-1.0 X 10^3 Eosinophils # (Auto) 0.3 0.0-0.3 10^3/uL Basophils # (Auto) 0.0 0.0-0.1 10^3/uL Neutrophils % (Manual) 87 % Lymphocytes % (Manual) 8 % Monocytes % (Manual) 1 % Eosinophils % (Manual) 1 % Band Neutrophils 3 % Blood Morphology Comment NORMAL Prothrombin Time 12.9 12.2-14.7 SEC INR Comment 0.9 0.8-1.4 Sodium Level 145 135-145 MMOL/L Potassium Level 3.3 L 3.6-5.0 MMOL/L Chloride Level 111 H 98-107 MMOL/L Carbon Dioxide Level 19 L 21-32 MMOL/L Anion Gap 15 H 5-14 MMOL/L Blood Urea Nitrogen 11 7-18 MG/DL Creatinine 0.81 0.60-1.30 MG/DL Estimat Glomerular Filtration Rate > 60 BUN/Creatinine Ratio 14 Glucose Level 139 H 70-105 MG/DL Calcium Level 8.2 L 8.5-10.1 MG/DL Corrected Calcium 8.0 L 8.5-10.1 MG/DL Total Bilirubin 0.3 0.1-1.0 MG/DL Aspartate Amino Transf (AST/SGOT) 29 5-34 U/L Alanine Aminotransferase (ALT/SGPT) 8 0-55 U/L Alkaline Phosphatase 94 40-136 U/L Total Protein 7.5 6.4-8.2 GM/DL Albumin 4.2 3.2-4.5 GM/DL Serum Alcohol 420 *H <10 MG/DL My Orders Orders - CATHI CABALLERO DRAINAGE DESIGN COORDINATOR Cbc With Automated Diff (06/06/19 20:23) Comprehensive Metabolic Panel (06/06/19 20:23) Alcohol (06/06/19 20:23) Protime With Inr (06/06/19 20:23) Ed Iv/Invasive Line Start (06/06/19 20:23) Ua Culture If Indicated (06/06/19 20:23) Drug Screen Stat (Urine) (06/06/19 20:23) Chest 1 View, Ap/Pa Only (06/06/19 20:23) Ns Iv 1000 Ml (Sodium Chloride 0.9%) (06/06/19 20:30) Lorazepam Injection (Ativan Injection) (06/06/19 20:30) Ekg Tracing (06/06/19 20:23) Pantoprazole Injection (Protonix Injecti (06/06/19 20:30) Ct Head Wo (06/06/19 20:56) Manual Differential (06/06/19 20:52) Ns (Ivpb) (Sodium C... W/Dexmedetomidine (06/06/19 21:45) Midazolam Injection (Versed Injection) (06/06/19 21:45) Rocuronium 5 Ml Syringe (Rocuronium 5 Ml (06/06/19 21:45) Og Tube Insertion (06/06/19 21:55) Chest 1 View, Ap/Pa Only (06/06/19 21:55) Piperacillin Sodium/Tazobactam (Zosyn Vi (06/06/19 22:00) Medications Given in ED Current Medications Medications Dose Ordered Sig/Brenda Route Start Time Stop Time Status Last Admin Dose Admin Lorazepam 1 mg ONCE ONCE IVP 06/06/19 20:30 06/06/19 20:31 DC 06/06/19 20:12 1 MG Pantoprazole 80 mg ONCE ONCE IV 06/06/19 20:30 06/06/19 20:31 DC 06/06/19 21:35 80 MG Vital Signs/I&O 06/06/19 20:12 Temp 34.5 Pulse 101 Resp 18 B/P (MAP) 136/88 (104) Pulse Ox 91 O2 Delivery Room Air Capillary Refill : Diagnostic Imaging Diagonstic Imaging: Xray Comments NAME: LOVE NICKERSON [email or web address] REC#: [id number] PT STATUS: REG ER : 1940 PHYSICIAN: CATHI CABALLERO APRN ADMIT DATE: 06/06/19/ER Draft Date of Exam:06/06/19 CHEST 1 VIEW, AP/PA ONLY INDICATION: Intoxication. Fall. COMPARISON: 04/15/2014. EXAMINATION: Portable chest. FINDINGS: The lungs are well-aerated and clear. There is no air-trapping. The heart is not enlarged. No pulmonary edema. No pneumothorax or pleural effusion. No bony abnormality. IMPRESSION: Normal portable chest. Dictated on workstation # [id number] Dict: 06/06/192118 Trans: 06/06/192120 [facility] [id number] Interpreted by: TOSHIA DIXON MD Electronically signed by: NAME: LOVE NICKERSON [email or web address] REC#: [id number] PT STATUS: REG ER : 1940 PHYSICIAN: CATHI CABALLERO APRN ADMIT DATE: 06/06/19/ER Draft Date of Exam:06/06/19 CT HEAD WO PROCEDURE: CT head without contrast. TECHNIQUE: Multiple contiguous axial images were obtained through the brain without the use of intravenous contrast. Auto Exposure Controls were utilized during the CT exam to meet ALARA standards for radiation dose reduction. INDICATION: Undocumented fall. Head pain. Ethanol use. FINDINGS: There is diffuse cortical atrophy. There is no evidence of intracranial hemorrhage. Ventricles and cortical gyral pattern are normal. There are benign calcifications noted in the basal nuclei, bilaterally. Basal cisterns are clear. CP angles appear normal. Mastoid air cells are clear. There is a moderate size retention cyst in the right maxillary sinus, measuring approximately 2 cm with some mucosal thickening. There is mild mucosal thickening in the ethmoid sinuses, bilaterally. IMPRESSION: 1. No acute intracranial abnormality. 2. Findings of chronic inflammatory changes of the ethmoid sinuses and right maxillary sinus. 3. No calvarial fracture or acute abnormality demonstrated. Dictated on workstation # [id number] Dict: 06/06/192115 Trans: 06/06/192122 [facility] [id number] Interpreted by: TOSHIA DIXON MD Electronically signed by: Departure Communication (Admissions) Time/Spoke to Admitting Phy: 22:01 2127-he's been quite a bit more cooperative after a milligram of Ativan, oxygen 92% on 2 L. 2199-because of his alcohol level advanced age as well as my concern that he will fail to protect his airway upstairs I did go ahead and intubate him with a size 7.5 endotracheal tube 22 cm at the teeth using 5 mg of Versed and 50 mg of rocuronium. This went smoothly, intubated in the semi-perez's position to reduce risk of aspiration. Still has gurgling respirations even after intubation so deep suctioning was done and appearance of gastric contents aspirated from airways. For this reason I will place him on Zosyn. Spoke with Dr. Bennett, will admit to ICU. Impression Primary Impression: Altered mental status Qualified Codes: R41.82 - Altered mental status, unspecified Additional Impression: Alcohol intoxication Disposition: ADMITTED INPATIENT Condition: Stable Admissions Decision to Admit Reason: Admit from ER (General) Decision to Admit/Date: Jun 06, 2019 Time/Decision to Admit Time: 22:01 Departure-Patient Inst. Referrals: DAYSI BEDOYA DO (PCP/Family) Primary Care Physician Patient Instructions: ALCOHOL AND SUBSTANCE ABUSE Scripts Unable to Obtain Active Prescriptions or Reported Meds CATHI CABALLERO APRN Jun 06, 2019 20:56
[2019-06-06 21:01] LABS: BASOPHILS % (AUTO) 0 % (0-10); EOSINOPHILS # (AUTO) 0.3 10^3/uL (0.0-0.3); EOSINOPHILS % (AUTO) 2 % (0-10); HEMATOCRIT 46 % (40-54); HEMOGLOBIN 15.2 G/DL (13.3-17.7); LYMPHOCYTES # (AUTO) 0.7 X 10^3 (1.0-4.0); LYMPHOCYTES % (AUTO) 5 % (12-44); MEAN CORPUSCULAR HEMOGLOBIN 31 PG (25-34); MEAN CORPUSCULAR HGB CONC 33 G/DL (32-36); MEAN CORPUSCULAR VOLUME 93 FL (80-99); MEAN PLATELET VOLUME 9.7 FL (7.4-10.4); MONOCYTES # (AUTO) 0.3 X 10^3 (0.0-1.0); MONOCYTES % (AUTO) 3 % (0-12); NEUTROPHILS # (AUTO) 11.8 X 10^3 (1.8-7.8); NEUTROPHILS % (AUTO) 90 % (42-75); PLATELET COUNT 221 10^3/uL (130-400); RED CELL DISTRIBUTION WIDTH 13.3 % (10.0-14.5); WHITE BLOOD COUNT 13.1 10^3/uL (4.3-11.0)
[2019-06-06 21:11] LABS: INR 0.9 (0.8-1.4); PROTHROMBIN TIME PATIENT 12.9 SEC (12.2-14.7)
--- NOTE | 2019-06-06 21:21 | Diagnostic Imaging Report ---
INDICATION: Intoxication. Fall. COMPARISON: 04/15/2014. EXAMINATION: Portable chest. FINDINGS: The lungs are well-aerated and clear. There is no air-trapping. The heart is not enlarged. No pulmonary edema. No pneumothorax or pleural effusion. No bony abnormality. IMPRESSION: Normal portable chest. Dictated by: Dictated on workstation # [id number]
[2019-06-06 21:22] LABS: ALANINE AMINOTRANSFERASE 8 U/L (0-55); ALBUMIN 4.2 GM/DL (3.2-4.5); ALKALINE PHOSPHATASE 94 U/L (40-136); BILIRUBIN,TOTAL 0.3 MG/DL (0.1-1.0); BUN/CREATININE RATIO 14; CALCIUM 8.2 MG/DL (8.5-10.1); CARBON DIOXIDE 19 MMOL/L (21-32); CHLORIDE 111 MMOL/L (98-107); CREATININE SERUM 0.81 MG/DL (0.60-1.30); GFR ESTIMATED > 60; GLUCOSE 139 MG/DL (70-105); POTASSIUM 3.3 MMOL/L (3.6-5.0); SODIUM 145 MMOL/L (135-145); TOTAL PROTEIN 7.5 GM/DL (6.4-8.2)
--- NOTE | 2019-06-06 21:23 | Diagnostic Imaging Report ---
PROCEDURE: CT head without contrast. TECHNIQUE: Multiple contiguous axial images were obtained through the brain without the use of intravenous contrast. Auto Exposure Controls were utilized during the CT exam to meet ALARA standards for radiation dose reduction. INDICATION: Undocumented fall. Head pain. Ethanol use. FINDINGS: There is diffuse cortical atrophy. There is no evidence of intracranial hemorrhage. Ventricles and cortical gyral pattern are normal. There are benign calcifications noted in the basal nuclei, bilaterally. Basal cisterns are clear. CP angles appear normal. Mastoid air cells are clear. There is a moderate size retention cyst in the right maxillary sinus, measuring approximately 2 cm with some mucosal thickening. There is mild mucosal thickening in the ethmoid sinuses, bilaterally. IMPRESSION: 1. No acute intracranial abnormality. 2. Findings of chronic inflammatory changes of the ethmoid sinuses and right maxillary sinus. 3. No calvarial fracture or acute abnormality demonstrated. Dictated by: Dictated on workstation # [id number]
[2019-06-06 21:35] LABS: BAND NEUTROPHILS 3 %; EOSINOPHILS % (MANUAL) 1 %; LYMPHOCYTES % (MANUAL) 8 %; MONOCYTES % (MANUAL) 1 %; NEUTROPHILS % (MANUAL) 87 %; RBC MORPH NORMAL
[2019-06-06] MEDS ORDERED: MIDAZOLAM 10 MG/2 ML (VERSED) VIAL IVP ONE (21:45)
[2019-06-06] MEDS ORDERED: ROCURONIUM 10 MG/ML 5 ML SYRINGE IV ONE (21:45)
[2019-06-06] MEDS ORDERED: PIPERACILLIN SODIUM/TAZOBACTAM 4.5 GM in NS (IVPB) 100 ML IV ONE (22:00)
[2019-06-06 22:10] VITALS: BP 136/80
--- NOTE | 2019-06-06 22:14 | NUR ---
TIMELINE NOTE BELOW: 06/06/2019: DECISION TO INTUBATE MADE BY EMMA JIMENEZ. 06/06/2019: 5MG VERSED GIVEN BY THIS RN PER VERBAL ORDER GIVEN BY EMMA JIMENEZ. 06/06/2019: 50MG ROCURONIUM GIVEN BY THIS RN PER VERBAL ORDER GIVEN BY EMMA JIMENEZ. 06/06/2019: PT INTUBATED WITH 7.5FR ET TUBE, 22CM AT TEETH, COLOR CHANGE NOTED, FOG IN THE TUBE NOTED, BILATERAL LUNG SOUNDS NOTED BY EMMA JIMENEZ. 06/06/2019: UNSUCCESSFUL OG ATTEMPT BY THIS RN. SUCCESSFUL OG ATTEMPT BY EMMA JIMENEZ WITH USE OF LARYNGOSCOPE. Addendum: 06/06/19 at 2230 by THADDEUS RT AT BEDSIDE FOR INTUBATION PROCESS. VENTILATOR SETTINGS: AC MODE, TV 550, RR 16, FI02 30%, PEEP 5.
[2019-06-06] MEDS ORDERED: MIDAZOLAM 5 MG/5 ML (VERSED) VIAL IVP ONE (22:15)
[2019-06-06] MEDS ORDERED: fentaNYL INJECTION 100 MCG/2 ML AMP IVP ONE (22:15)
--- NOTE | 2019-06-06 22:15 | NUR ---
REPORT CALLED TO KORINA TORIBIO BY EMMA JIMENEZ. CXR OBTAINED AT THIS TIME.
--- NOTE | 2019-06-06 22:41 | NUR ---
PT TRANSPORTED TO ICU VIA STRETCHER WITH THIS RN AT [facility] AND NANY RT AT SIDE OF BED BAGGING PT FOR OXYGEN DELIVERY. PT ARRIVED TO ICU AND TRANSFERRED TO ICU BED WITHOUT INCIDENT.
[2019-06-06 22:45] VITALS: BP 65/41
[2019-06-06] MEDS ORDERED: DexMEDEtomidine 250 ML DRIP 250 ML IV ONE (22:46)
[2019-06-06] MEDS ORDERED: D5 NS W/KCL 20 MEQ/L 0 ML IV ONE (22:46)
[2019-06-06] MEDS ORDERED: D5 1/2 NS W/KCL 20 MEQ/L 1,000 ML IV ONE (22:48)
[2019-06-06] MEDS ORDERED: NS IV 1000 ML 1,000 ML ONE (22:57)
[2019-06-06 23:00] VITALS: BP 61/39
--- NOTE | 2019-06-06 23:00 | NUR ---
FAMILY MEDICAL HISTORY NOT OBTAINED DUE TO LOC OF PT AT [facility] AND THROUGHOUT ED VISIT. PT INTUBATED IN ED AND TRANSPORTED TO ICU.
[2019-06-06] MEDS ORDERED: 1/2 NS IV SOLUTION 1,000 ML IV PRN (23:03)
[2019-06-06 23:15] VITALS: BP 62/40
[2019-06-06] MEDS ORDERED: SENNA W/DOCUSATE (SENOKOT S) TABLET PO PRN (23:15)
[2019-06-06] MEDS ORDERED: ONDANSETRON 4 MG (ZOFRAN) ORAL DISSOLVE TAB SL PRN (23:15)
[2019-06-06] MEDS ORDERED: ONDANSETRON 4 MG/2 ML (SDV) Z0FRAN IV PRN (23:15)
[2019-06-06] MEDS ORDERED: ANTACID SUSP 30 ML UDC (MYLANTA) PO PRN (23:15)
[2019-06-06] MEDS ORDERED: D5 1/2 NS 1000 ML IV SOLUTION 1,000 ML IV PRN (23:15)
[2019-06-06] MEDS ORDERED: LORazepam INJ 2 MG/ML (ATIVAN) VIAL IM/IV PRN (23:15)
[2019-06-06] MEDS ORDERED: DexMEDEtomidine 200 MCG/NS 50 ML IV SCH ×2 (23:15)
[2019-06-06] MEDS ORDERED: LORazepam 1 MG (ATIVAN) TAB PO PRN (23:15)
[2019-06-06] MEDS ORDERED: LORazepam INJ 2 MG/ML (ATIVAN) VIAL IV PRN (23:15)
[2019-06-06] MEDS: D5 1/2 NS W/KCL 20 MEQ/L 1,000 ML IV SCH (23:18)
[2019-06-06 23:30] VITALS: BP 89/57
[2019-06-06 23:35] LABS: BILIRUBIN,URINE NEGATIVE (NEGATIVE); CLARITY,URINE CLOUDY; COLOR,URINE DARK YELLOW; GLUCOSE, URINE (UA) NEGATIVE (NEGATIVE); KETONES,URINE NEGATIVE (NEGATIVE); LEUKOCYTE ESTERASE ,URINE 1+ (NEGATIVE); NITRITE,URINE POSITIVE (NEGATIVE); PROTEIN,URINE TRACE (NEGATIVE)
[2019-06-06 23:52] LABS: BACTERIA,URINE LARGE /HPF; WBC,URINE 25-50 /HPF
[2019-06-06 23:53] LABS: AMPHETAMINE SCREEN, URINE NEGATIVE (NEGATIVE); BARBITURATE SCREEN URINE NEGATIVE (NEGATIVE); BENZODIAZEPINES SCREEN URINE NEGATIVE (NEGATIVE); CANNABINOID SCREEN, URINE NEGATIVE (NEGATIVE); COCAINE SCREEN URINE NEGATIVE (NEGATIVE); METHADONE STAT NEGATIVE (NEGATIVE); METHAMPHETAMINE SCREEN URINE S NEGATIVE (NEGATIVE); OPIATE SCREEN URINE NEGATIVE (NEGATIVE); OXYCODONE STAT NEGATIVE (NEGATIVE); PROPOXYPHENE STAT NEGATIVE (NEGATIVE); TRICYCLIC ANTIDEPRESSANTS SCRE NEGATIVE (NEGATIVE)
[2019-06-07] VITALS (49 sets, daily range): BP systolic 67–142; BP diastolic 41–85
[2019-06-07] MEDS ORDERED: DexMEDEtomidine 250 ML DRIP 250 ML IV SCH
[2019-06-07 00:26] LABS: BASOPHILS % (AUTO) 0 % (0-10); EOSINOPHILS # (AUTO) 0.1 10^3/uL (0.0-0.3); EOSINOPHILS % (AUTO) 0 % (0-10); HEMATOCRIT 44 % (40-54); HEMOGLOBIN 14.2 G/DL (13.3-17.7); LYMPHOCYTES % (AUTO) 6 % (12-44); MEAN CORPUSCULAR HEMOGLOBIN 31 PG (25-34); MEAN CORPUSCULAR HGB CONC 33 G/DL (32-36); MEAN CORPUSCULAR VOLUME 95 FL (80-99); MEAN PLATELET VOLUME 9.7 FL (7.4-10.4); MONOCYTES % (AUTO) 6 % (0-12); NEUTROPHILS # (AUTO) 14.1 X 10^3 (1.8-7.8); NEUTROPHILS % (AUTO) 88 % (42-75); PLATELET COUNT 213 10^3/uL (130-400); RED CELL DISTRIBUTION WIDTH 13.4 % (10.0-14.5); WHITE BLOOD COUNT 16.1 10^3/uL (4.3-11.0)
[2019-06-07 00:40] LABS: BUN/CREATININE RATIO 11; CALCIUM 7.5 MG/DL (8.5-10.1); CARBON DIOXIDE 18 MMOL/L (21-32); CHLORIDE 113 MMOL/L (98-107); GFR ESTIMATED > 60; GLUCOSE 127 MG/DL (70-105); MAGNESIUM 1.7 MG/DL (1.6-2.4); PHOSPHORUS 2.4 MG/DL (2.3-4.7); POTASSIUM 3.4 MMOL/L (3.6-5.0); SODIUM 145 MMOL/L (135-145)
[2019-06-07] MEDS ORDERED: PIPERACILLIN/TAZO 4.5 GM VIAL (ZOSYN) IV ONE ×2 (00:56→06:18)
[2019-06-07] MEDS ORDERED: NS (IVPB) 100 ML ONE ×2 (00:57→06:19)
[2019-06-07] MEDS ORDERED: NOREPINEPHRINE 4 MG/250 ML 250 ML IV SCH (00:58)
[2019-06-07] MEDS ORDERED: RT-ALBUTEROL/IPRATROPIUM 3 ML (DUONEB) VIAL INH PRN (03:30)
[2019-06-07] MEDS ORDERED: PIPERACILLIN/TAZO 4.5 GM/NS 100 ML IV SCH ×2 (04:00)
[2019-06-07 04:20] LABS: ABG BASE EXCESS -7.4 MMOL/L (-2.5-2.5); ABG OXYGEN SATURATION 98 % (94-100); ABG PCO2 35 MMHG (35-45); ABG PO2 109 MMHG (79-93); ABG TCO2 18.3 MMOL/L (21.0-31.0)
[2019-06-07 04:24] LABS: ABG PH 7.32 (7.37-7.43); ALLENS TEST YES-POS; INSPIRED O2 40%; PATIENT TEMP 38; VENTILATOR YES
--- NOTE | 2019-06-07 05:11 | Diagnostic Imaging Report ---
INDICATION: Respiratory failure AP view of the chest is obtained with comparison made to the study of 06/06/2019. Overall heart size and pulmonary vascularity within normal limits. There is air trapping bilaterally. Endotracheal tube is in place with tip just below the thoracic inlet. Nasogastric tube passes below the diaphragm. No pneumothorax is identified. There is slight basilar atelectasis. IMPRESSION: Mild basilar atelectasis without overt complication post endotracheal intubation. Dictated by: Dictated on workstation # [id number]
[2019-06-07] MEDS: D5 1/2 NS W/KCL 20 MEQ/L 1,000 ML IV SCH (05:47)
[2019-06-07] MEDS ORDERED: MAGNESIUM 1 GM/100 ML IVPB 100 ML IV SCH (06:00)
[2019-06-07] MEDS ORDERED: KCL 20 MEQ TAB (K-DUR) PO SCH (06:00)
[2019-06-07] MEDS ORDERED: POTASSIUM CL 10MEQ/50ML IVPB 50 ML IV SCH (06:00)
[2019-06-07] MEDS ORDERED: NS IV 1000 ML 1,000 ML ONE (06:08)
[2019-06-07] MEDS: MAGNESIUM 1 GM/100 ML IVPB 100 ML IV SCH ×2 (06:43→07:45)
[2019-06-07] MEDS: POTASSIUM CL 10MEQ/50ML IVPB 50 ML IV SCH ×2 (06:45→07:49)
--- NOTE | 2019-06-07 07:51 | Diagnostic Imaging Report ---
HISTORY: Intubation TECHNIQUE: Single frontal view of the chest. COMPARISON: 06/06/2019 FINDINGS: Endotracheal tube is approximately 5 cm above the jana. The enteric tube projects over the stomach. Lung volumes are mildly low. There are linear opacities at the right lung base, may represent atelectasis or infiltrate. No significant pleural effusion or pneumothorax is seen. IMPRESSION: 1. Low lung volumes with linear opacities at the right lung base, may represent atelectasis or infiltrate. Dictated by: Dictated on workstation # [id number]
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
[2019-06-07] MEDS ORDERED: ROCURONIUM 10 MG/ML 5 ML SYRINGE IV ONE (08:34)
[2019-06-07] MEDS ORDERED: MIDAZOLAM 5 MG/5 ML (VERSED) VIAL IJ ONE (08:34)
[2019-06-07] MEDS ORDERED: RT-ALBUTEROL/IPRATROPIUM 3 ML (DUONEB) VIAL INH SCH (09:00)
[2019-06-07] MEDS ORDERED: THIAMINE INJECTION 100 MG, FOLIC ACID INJECTION 1 MG, MAGNESIUM SULFATE 2 GM, VITAMIN M... IV SCH ×5 (09:00)
[2019-06-07] MEDS ORDERED: PANTOPRAZOLE 40 MG (PROTONIX) VIAL IV SCH (09:00)
[2019-06-07 09:20] LABS: BASOPHILS % (AUTO) 0 % (0-10); EOSINOPHILS % (AUTO) 0 % (0-10); HEMATOCRIT 36 % (40-54); HEMOGLOBIN 11.4 G/DL (13.3-17.7); LYMPHOCYTES # (AUTO) 0.9 X 10^3 (1.0-4.0); LYMPHOCYTES % (AUTO) 6 % (12-44); MEAN CORPUSCULAR HEMOGLOBIN 31 PG (25-34); MEAN CORPUSCULAR HGB CONC 32 G/DL (32-36); MEAN CORPUSCULAR VOLUME 96 FL (80-99); MONOCYTES # (AUTO) 1.1 X 10^3 (0.0-1.0); MONOCYTES % (AUTO) 8 % (0-12); NEUTROPHILS # (AUTO) 12.4 X 10^3 (1.8-7.8); NEUTROPHILS % (AUTO) 86 % (42-75); PLATELET COUNT 166 10^3/uL (130-400); RED CELL DISTRIBUTION WIDTH 13.4 % (10.0-14.5); WHITE BLOOD COUNT 14.3 10^3/uL (4.3-11.0)
[2019-06-07] MEDS ORDERED: ENOXAPARIN 40 MG/0.4 ML (LOVENOX) SYR SC SCH (09:30)
[2019-06-07 09:40] LABS: ALANINE AMINOTRANSFERASE < 6 U/L (0-55); ALBUMIN 3.1 GM/DL (3.2-4.5); ALKALINE PHOSPHATASE 57 U/L (40-136); BILIRUBIN,TOTAL 0.6 MG/DL (0.1-1.0); BUN/CREATININE RATIO 10; CALCIUM 6.9 MG/DL (8.5-10.1); CARBON DIOXIDE 14 MMOL/L (21-32); CHLORIDE 114 MMOL/L (98-107); CREATININE SERUM 1.17 MG/DL (0.60-1.30); GFR ESTIMATED 60; GLUCOSE 272 MG/DL (70-105); MAGNESIUM 2.3 MG/DL (1.6-2.4); PHOSPHORUS 1.9 MG/DL (2.3-4.7); POTASSIUM 3.8 MMOL/L (3.6-5.0); SODIUM 140 MMOL/L (135-145); TOTAL PROTEIN 5.3 GM/DL (6.4-8.2)
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
[2019-06-07] MEDS ORDERED: AMOX-358 PO (11:07)
--- NOTE | 2019-06-07 12:35 | NUR ---
LOVE NICKERSON demonstrates understanding of discharge instructions and accurately returns instructions upon questioning. Copy of Post-Discharge Instructions and Medication Discharge Instructions given to PATIENT. LOVE NICKERSON is able to manage continuing needs after discharge. Patients belongings returned to PATIENT, PATIENT THREW SOME OF HIS OWN CLOTHING AWAY. Skin dry and intact; no breakdown noted. Patient discharged from [facility] on at 1235. LOVE NICKERSON left floor AMBULATORY accompanied by THIS RN. THIS RN STRESSED THE IMPORTANCE OF PICKING UP PERSCRIPTION MEDICATION THAT WAS CALLED TO PHARMACY, PATIENT VOICED UNDERSTANDING.
== END 2019-06-07 12:35 | disposition home or self-care (01) | DRG 208 ==
LOC: ER 20:12 → ICU 22:17
PROVIDERS: ADMIT Internal Medicine; ATTEND Internal Medicine
PROC: 5A1935Z Respiratory Ventilation, Less than 24 Consecutive Hours (ICD-10-PCS; principal; 2019-06-06)
PROC: 0BH17EZ Insertion of Endotracheal Airway into Trachea, Via Natural or Artificial Opening (ICD-10-PCS; 2019-06-06)
DX: J69.0 Pneumonitis due to inhalation of food and vomit (principal); F10.229 Alcohol dependence with intoxication, unspecified; A41.9 Sepsis, unspecified organism; J96.00 Acute respiratory failure, unspecified whether with hypoxia or hypercapnia; J98.11 Atelectasis; R41.82 Altered mental status, unspecified
CPT/HCPCS: 36415; 70450; 71045; 80048; 80053; 80306; 80320; 81000; 82140; 82805; 82962; 83605; 83735; 83880; 84100; 85007; 85025; 85027; 85610; 87040; 87070; 87081; 87088; 87205; 87449; 87899; 93005; 94002; 94003; 94799

== ENCOUNTER 2019-08-15 21:02 | Emergency (ER) | payer SELFPAY ==
[2019-08-15 21:02] VITALS: BP 115/65
[~2019-08-15 21:02] MED LIST changes: +AMOX-358 PO; -LORazepam INJ 2 MG/ML (ATIVAN) VIAL ONE
--- NOTE | 2019-08-15 21:07 | NUR ---
C COLLAR PLACED BY DR. ALVAREZ.
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
[2019-08-15] MEDS ORDERED: NS IV 1000 ML 1,000 ML IV SCH ×2 (21:14→21:50)
[2019-08-15 21:22] LABS: BASOPHILS # (AUTO) 0.1 10^3/uL (0.0-0.1); BASOPHILS % (AUTO) 0 % (0-10); EOSINOPHILS # (AUTO) 0.4 10^3/uL (0.0-0.3); EOSINOPHILS % (AUTO) 2 % (0-10); HEMATOCRIT 45 % (40-54); HEMOGLOBIN 14.4 G/DL (13.3-17.7); LYMPHOCYTES # (AUTO) 1.8 X 10^3 (1.0-4.0); LYMPHOCYTES % (AUTO) 11 % (12-44); MEAN CORPUSCULAR HEMOGLOBIN 31 PG (25-34); MEAN CORPUSCULAR HGB CONC 32 G/DL (32-36); MEAN CORPUSCULAR VOLUME 95 FL (80-99); MEAN PLATELET VOLUME 9.4 FL (7.4-10.4); MONOCYTES # (AUTO) 0.8 X 10^3 (0.0-1.0); MONOCYTES % (AUTO) 5 % (0-12); NEUTROPHILS % (AUTO) 82 % (42-75); PLATELET COUNT 295 10^3/uL (130-400); RED CELL DISTRIBUTION WIDTH 13.1 % (10.0-14.5)
[2019-08-15 21:33] LABS: ALBUMIN 4.5 GM/DL (3.2-4.5)
[2019-08-15 21:34] LABS: POTASSIUM 4.5 MMOL/L (3.6-5.0)
[2019-08-15 21:35] LABS: CALCIUM 8.7 MG/DL (8.5-10.1)
[2019-08-15 21:38] LABS: BILIRUBIN,TOTAL 0.3 MG/DL (0.1-1.0)
[2019-08-15 21:40] LABS: CREATININE SERUM 1.54 MG/DL (0.60-1.30)
[2019-08-15 21:44] LABS: BAND NEUTROPHILS 0 %; BASOPHILS % (MANUAL) 0 %; EOSINOPHILS % (MANUAL) 0 %; LYMPHOCYTES % (MANUAL) 10 %; MONOCYTES % (MANUAL) 3 %; NEUTROPHILS % (MANUAL) 83 %; RBC MORPH NORMAL; REACTIVE LYMPHOCYTES 4 %
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
== END 2019-08-16 03:52 | disposition home or self-care (01) ==
LOC: EDUNIT# 21:02 → ER 21:03
DX: F10.229 Alcohol dependence with intoxication, unspecified (principal); Z77.22 Contact with and (suspected) exposure to environmental tobacco smoke (acute) (chronic); W18.30XA Fall on same level, unspecified, initial encounter; Y90.8 Blood alcohol level of 240 mg/100 ml or more
CPT/HCPCS: 70450; 71045; 72125; 80053; 85007; 85027; 86141; 99284; G0480; 36415; 80320

== ENCOUNTER 2019-12-13 15:23 | Emergency (ER) | payer SELFPAY ==
[~2019-12-13] VITALS: Ht 167.7 cm; Wt 63.5 kg
[2019-12-13] MEDS ORDERED: LACTATED RINGERS 1,000 ML IV SCH ×2 (15:30→18:15)
[2019-12-13] MEDS ORDERED: THIAMINE 100 MG/ML 2 ML (VITAMIN B-1) VIAL IV ONE (15:30)
[2019-12-13] MEDS ORDERED: ONDANSETRON 4 MG/2 ML (SDV) Z0FRAN IVP ONE (15:30)
[2019-12-13] MEDS ORDERED: FOLIC ACID 5MG/ML 10 ML IV ONE ×2 (15:30→15:45)
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
[2019-12-13 16:00] LABS: BASOPHILS % (AUTO) 1 % (0-10); EOSINOPHILS # (AUTO) 0.6 10^3/uL (0.0-0.3); EOSINOPHILS % (AUTO) 9 % (0-10); HEMATOCRIT 41 % (40-54); HEMOGLOBIN 13.5 g/dL (13.3-17.7); LYMPHOCYTES % (AUTO) 27 % (12-44); MEAN CORPUSCULAR HEMOGLOBIN 31 pg (25-34); MEAN CORPUSCULAR HGB CONC 33 g/dL (32-36); MEAN CORPUSCULAR VOLUME 93 fL (80-99); MEAN PLATELET VOLUME 9.9 fL (9.0-12.2); MONOCYTES # (AUTO) 0.4 10^3/uL (0.0-1.0); MONOCYTES % (AUTO) 6 % (0-12); NEUTROPHILS # (AUTO) 4.2 10^3/uL (1.8-7.8); NEUTROPHILS % (AUTO) 57 % (42-75); PLATELET COUNT 256 10^3/uL (130-400); WHITE BLOOD COUNT 7.3 10^3/uL (4.3-11.0)
[2019-12-13 16:05] LABS: ALBUMIN 4.4 GM/DL (3.2-4.5); POTASSIUM 3.6 MMOL/L (3.6-5.0)
[2019-12-13 16:07] LABS: CALCIUM 9.1 MG/DL (8.5-10.1)
[2019-12-13 16:08] LABS: TOTAL PROTEIN 7.9 GM/DL (6.4-8.2)
[2019-12-13 16:10] LABS: BILIRUBIN,TOTAL 0.2 MG/DL (0.1-1.0)
[2019-12-13 16:12] LABS: CREATININE SERUM 1.25 MG/DL (0.60-1.30)
--- NOTE | 2019-12-13 17:00 | Diagnostic Imaging Report ---
PROCEDURE: CT head without contrast. TECHNIQUE: Multiple contiguous axial images were obtained through the brain without the use of intravenous contrast. Auto Exposure Controls were utilized during the CT exam to meet ALARA standards for radiation dose reduction. INDICATION: Delirium. COMPARISON: 08/15/2019. FINDINGS: Calcifications within the bilateral basal ganglia are again identified. No intracranial hemorrhage. No intracranial mass, mass effect, midline shift, herniation, hydrocephalus or extra-axial fluid collection. No CT evidence of an acute ischemic infarction. Mild fat stranding involving the posterior right parietal scalp without underlying calvarial fracture. The orbits are unremarkable. Mucosal thickening within scattered ethmoidal air cells and the minimally visualized left maxillary sinus. Scattered vascular calcifications. The calvarium is intact. IMPRESSION: 1. No acute intracranial abnormality. 2. Minimal posterior right parietal scalp contusion without underlying calvarial fracture. Dictated by: Dictated on workstation # [id number]
--- NOTE | 2019-12-13 18:15 | NUR ---
SECOND LITER OF LR ADMINISTERED AT 1641 AND FINISHED INFUSING AT 1804.
[2019-12-13 18:23] VITALS: BP 121/74
== END 2019-12-13 18:23 | disposition home or self-care (01) ==
LOC: EDUNIT# 15:23 → ER 15:24
DX: F10.129 Alcohol abuse with intoxication, unspecified (principal); Z77.22 Contact with and (suspected) exposure to environmental tobacco smoke (acute) (chronic)
CPT/HCPCS: 70450; 80053; 85025; 99284; G0480; 36415; 80320

== ENCOUNTER 2020-03-26 19:14 | Emergency (ER) | payer SELFPAY ==
[~2020-03-26] VITALS: Ht 167.7 cm; Wt 63.5 kg
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
--- NOTE | 2020-03-26 20:10 | Diagnostic Imaging Report ---
INDICATION: Left hand injury. EXAMINATION: AP, oblique and lateral views of the left hand were obtained. FINDINGS: There is focal lucency along the distal aspect of the 1st proximal phalanx. This has corticated margins suggesting chronic nature. There is juxta-articular lucency at the distal 1st metacarpal which may also be chronic in nature. Small metallic appearing foreign objects are present at the base of the thumb and along the index finger at the level of the proximal phalanx. Flexion contracture is noted at the 3rd finger. No acute fracture line is appreciated. IMPRESSION: Old deformities in the thumb with radiopaque foreign bodies at the base of the thumb and along the index finger. Clinical correlation would be useful. There is also flexion deformity at the 5th proximal interphalangeal joint of indeterminate chronicity. Correlation with prior injury at this level would also be useful. Dictated by: Dictated on workstation # [id number]
[2020-03-27 01:43] VITALS: BP 140/75
== END 2020-03-26 19:56 | disposition home or self-care (01) ==
LOC: EDUNIT# 19:14 → ER 19:15
DX: S60.417A Abrasion of left little finger, initial encounter (principal); M20.092 Other deformity of left finger(s); M20.091 Other deformity of right finger(s); Z77.22 Contact with and (suspected) exposure to environmental tobacco smoke (acute) (chronic); V29.9XXA Motorcycle rider (driver) (passenger) injured in unspecified traffic accident, initial encounter; Y93.55 Activity, bike riding
CPT/HCPCS: 73130

== ENCOUNTER 2020-05-09 19:57 | Emergency (ER) | payer SELFPAY ==
[2020-05-09 20:00] VITALS: BP 159/78
== END 2020-05-09 21:32 | disposition left against medical advice (07) ==
LOC: EDUNIT# 19:57 → ER 19:58
DX: F19.10 Other psychoactive substance abuse, uncomplicated (principal); T50.905A Adverse effect of unspecified drugs, medicaments and biological substances, initial encounter
CPT/HCPCS: 99284

== ENCOUNTER 2021-07-24 22:54 | Emergency (ER) | payer SELFPAY ==
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
== END 2021-07-24 23:23 ==
LOC: EDUNIT# 22:54 → ER 22:55
DX: F10.129 Alcohol abuse with intoxication, unspecified (principal)
CPT/HCPCS: 82947

== ENCOUNTER 2022-05-26 15:22 | Emergency (ER) | payer MEDICAID ==
[~2022-05-26] VITALS: Ht 167 cm; Wt 74.0 kg
--- NOTE | 2022-05-26 15:34 | ED Psychosocial ---
General Chief Complaint: Substance Abuse Stated Complaint: INTOXICATION Source: patient Exam Limitations: language barrier History of Present Illness Date Seen by Provider: May 26, 2022 Time Seen by Provider: 15:28 Initial Comments Patient is an 82-year-old male who presents to the emergency department by EMS with intoxication. Patient is well-known to this emergency department as he has had prior visits for alcohol intoxication. EMS reports that they found him across the street from his home, he would not get up and walk, therefore he was brought to the emergency room for evaluation. Patient is quite intoxicated, singing loudly in Divehi as is his usual presentation. Exam is limited due to language barrier however we did to have a nurse who speaks Divehi in the department as well as the video radiagraph operator. Extremely difficult due to the patient's slurred speech and intoxication to get a history, however the patient does not articulating any complaints. He has stable vital signs. No obvious outward signs of trauma. Pleasant, not belligerent. Monitored in the emergency department blood sugar is normal. Timing/Duration: this afternoon Allergies and Home Medications Allergies Coded Allergies: No Known Drug Allergies (Unverified , 05/12/15) Patient Home Medication List Home Medication List Reviewed: Yes Amoxicillin/Potassium Clav (Augmentin 875-125 Tablet) 1 Each Tablet, 1 EACH PO BID Prescribed by: DAR VILLALPANDO on 06/07/19 1107 Review of Systems Constitutional: see HPI unable to obtain secondary to intoxication Past Ryzecmx-Bccjer-Ldluay Hx Immunizations Up To Date Tetanus Booster (TDap): Unknown Seasonal Allergies Seasonal Allergies: No Past Medical History Surgeries: No ("Prostate") Respiratory: No Cardiac: Yes Neurological: No Reproductive Disorders: No Sexually Transmitted Disease: No Genitourinary: Yes Prostate Problems, UTI-Chronic Gastrointestinal: No Musculoskeletal: Yes (PATIENT HAS FRACTURES L AND R PINKY) Contracture Endocrine: No Hearing Impairment: Hard of Hearing Cancer: No Psychosocial: Yes (Alcohol abuse) Integumentary: No Blood Disorders: No Family Medical History Patient reports no known family medical history. No Pertinent Family Hx Physical Exam Vital Signs - First Documented 05/26/22 15:22 Temp 36.3 Pulse 73 Resp 16 B/P (MAP) 178/79 (112) Pulse Ox 96 O2 Delivery Room Air Capillary Refill : Height, Weight, BMI Height: 5'6.00" Weight: 135lbs. 0.0oz. 61.611335pd; 22.00 BMI Method:Estimated General Appearance: WD/WN, no apparent distress, other (singing happily) HEENT: PERRL/EOMI Respiratory: no respiratory distress, no accessory muscle use Gastrointestinal: non tender, soft Extremities: normal range of motion, normal inspection Neurologic/Psychiatric: alert, normal mood/affect (happy drunk) Appearance/Memory: appropriate appearance, other (smells bad) Behavior/Eye Contact: good eye contact, normal speech (slightly slurred) Skin: normal color, warm/dry Procedures/Interventions Date of ETT Placement: Jun 06, 2019 Time of ETT Placement: 2209 Progress/Results/Core Measures Results/Orders Lab Results My Orders Vital Signs/I&O Progress Progress Note : Time: 16:26 Progress Note Patient seen and evaluated. At his usual baseline (intoxicated) Evaluation today includes physical exam. Blood sugar. DDX includes, acute intoxication, concern for head injury Pleasantly intoxicated, singing to staff. Voices no complaints to the nurse (Evelia, RN who speaks fluent tajik). He is talking about fishermen and that we are witches. Standing up at the bedside, repeatedly trying to walk out.At one point I tried to use the language line however the radiagraph operator could not really understand him. Evelia again used to reassess. He wants to go home. PD called to facilitate discharge. No concerning findings for injury or infection. VSS. No vomiting. No shortness of breath, No abdominal pain. Clinically drunk. PD will decide whether to safely take him home or to [facility] until he is more sober. Departure Impression Primary Impression: Acute alcoholic intoxication Qualified Codes: F10.921 - Alcohol use, unspecified with intoxication delirium Disposition: 01 HOME, SELF-CARE Condition: Unchanged Departure-Patient Inst. Decision time for Depature: 16:24 Referrals: DAYSI BEDOYA DO (PCP/Family) Primary Care Physician Add. Discharge Instructions: Go to [facility] tomorrow. Be careful leaving your house while drinking!! Come back for any new, emergent concerns. Vaya a la [facility] [employer] [facility]. Cuidado con salir de casa bebiendo!! Vuelva para cualquier inquietud nueva y emergente. Copy Copies To 1: DAYSI BEDOYA KATHRYN M MD May 26, 2022 15:34
[2022-05-26 16:32] VITALS: BP 178/79
== END 2022-05-26 16:32 | disposition home or self-care (01) ==
LOC: EDUNIT# 15:22 → ER 15:24
DX: F10.129 Alcohol abuse with intoxication, unspecified (principal)
CPT/HCPCS: 82947